=== PATIENT | male | born 1940 | race Caucasian/White ===

== ENCOUNTER 2019-09-11 18:04 | Inpatient (IN) ==
[2019-09-11] MEDS ORDERED: LACTATED RINGERS 1,000 ML IV ONE (18:13)
[2019-09-11] MEDS ORDERED: CEFEPIME 1 GM VIAL IV ONE (18:18)
--- NOTE | 2019-09-11 18:22 | Emergency Department Note ---
Male Urogenital HPI General Chief complaint: Urogenital-Male Stated complaint: Weakness, uti Time Seen by Provider: 09/11/19 18:11 Source: patient Mode of arrival: ambulatory Limitations: no limitations History of Present Illness HPI Narrative: Narrative: This patient was sent over from Dr. Leggett's office with a urinary tract infection which is growing Pseudomonas and will probably require IV antibiotics. Patient has been ill for 4 weeks and is becoming more ill today and generally just does not feel well at all. He has a lot of dysuria and pain in his pelvis and perineal area. He has had an A&P resection and does not have a rectum any longer. He does have a colostomy. Does not have back pain but only has 1 kidney. No fever chills nausea or vomiting. Related Data Home Medications Medication Instructions Recorded Confirmed terazosin 10 mg PO DAILY 05/27/15 09/11/19 warfarin 5 mg PO DAILY 05/27/15 09/11/19 cyanocobalamin (vitamin B-12) 1,000 mcg IM .[id number] ml 10/20/15 09/11/19 1,000 mcg/mL injection solution propranolol 20 mg tablet 20 mg PO BID tab 10/20/15 09/11/19 psyllium 1 tbsp PO BID 10/20/15 09/11/19 sildenafil 100 mg tablet 100 mg PO .COMPLEX 10/20/15 09/11/19 turmeric root extract 500 mg 10/20/15 09/11/19 capsule zolpidem 10 mg tablet 10 mg PO QHS PRN tab 10/20/15 09/11/19 Stool Softener #1 ea 10/05/17 09/11/19 cholecalciferol (vitamin D3) 125 5,000 unit PO BID cap 10/08/17 09/11/19 mcg (5,000 unit) capsule magnesium oxide 500 mg capsule 500 mg PO QDAY cap 10/08/17 09/11/19 testosterone 1.62 % (20.25 mg/1.25 1 mg TOPICAL DAILY 10/08/17 09/11/19 gram) transdermal gel packet warfarin 2.5 mg PO WEEKLY 10/11/17 09/11/19 phenazopyridine 200 mg PO PRN PRN 09/11/19 09/11/19 Previous Rx's Medication Instructions Recorded oxycodone-acetaminophen 1 each PO Q4HP PRN #10 tab 10/12/17 Allergies Allergy/AdvReac Type Severity Reaction Status Date / Time midazolam [From Versed] Allergy Intermediate Other Verified 09/11/19 18:04 gentamicin [Gentamicin] Allergy Unknown Other Verified 09/11/19 18:04 Iodinated Contrast Media Allergy Unknown Other Verified 09/11/19 18:04 lactase [From Dairy Aid] Allergy Unknown Flatulence Verified 09/11/19 18:04 Penicillins Allergy Unknown Unknown Verified 09/11/19 18:04 Review of Systems ROS ROS Narrative: Narrative: All systems ED: reviewed and negative except as stated. [facility] Narrative Patient History Narrative: Narrative: Medical/Surgical/Family History All Active Problems (Updated 09/11/19 @ 20:39 by Fredo Degroot MD) Deep vein thrombosis of lower extremity (Acute) Thrombophilia (Acute) Dysphagia (Acute) Concussion with loss of consciousness (Acute) Urinary tract infection (Acute) Port-A-Cath in place (Chronic) Tremor (Chronic) Chronic post-traumatic stress disorder (Chronic) Rosacea (Chronic) Dermatitis (Chronic) Carcinoma of colon (Chronic) Anorexia (Chronic) Vitamin B12 deficiency anemia (Chronic) Impotence (Chronic) Sensorineural hearing loss (SNHL), bilateral (Chronic) Elevated PSA (Chronic) Dermatochalasis (Chronic) 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) Chest pain (Chronic) Hydronephrosis (Chronic) Low back pain (Chronic) Bronchospasm (Chronic) Disequilibrium (Chronic) Tear film insufficiency (Chronic) Chronic allergic conjunctivitis (Chronic) Nuclear senile cataract (Chronic) Seborrheic keratosis (Chronic) Anxiety (Chronic) Severe depression (Chronic) detention current use of anticoagulant (Chronic) Chronic pyelonephritis (Chronic) Status post nephrectomy (Chronic) Toe injury (Chronic) Vertigo (Chronic) Chronic urinary tract infection (Chronic) History of colon cancer (Chronic) Poor venous access (Chronic) Right acetabular fracture (Chronic) Concussion (Chronic) Medical History (Updated 09/11/19 @ 20:39 by Fredo Degroot MD) Anorexia (Chronic) Anxiety (Chronic) Bronchospasm (Chronic) Carcinoma of colon (Chronic) Chest pain (Chronic) Chronic allergic conjunctivitis (Chronic) Chronic post-traumatic stress disorder (Chronic) Chronic pyelonephritis (Chronic) Chronic urinary tract infection (Chronic) Concussion (Chronic) Dermatitis (Chronic) Dermatochalasis (Chronic) Disequilibrium (Chronic) Elevated PSA (Chronic) Gastroesophageal reflux disease with stricture (Chronic) History of colon cancer (Chronic) Hydronephrosis (Chronic) 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 Multiple requests for medical marijuana. Nuclear senile cataract (Chronic) Poor venous access (Chronic) Port-A-Cath in place (Chronic) Pulmonary embolism and infarction (Chronic) Right acetabular fracture (Chronic) Rosacea (Chronic) Seborrheic keratosis (Chronic) Sensorineural hearing loss (SNHL), bilateral (Chronic) Severe depression (Chronic) Status post nephrectomy (Chronic) Tear film insufficiency (Chronic) Toe injury (Chronic) 08/2015-Dropped piece of drywall on toe Tremor (Chronic) Venous thrombosis and embolism (Chronic) Vertigo (Chronic) Vitamin B12 deficiency anemia (Chronic) Surgical History (Updated 10/25/17 @ 13:59 by Chhaya Fish CMA) History of creation of ostomy (Chronic) colostomy History of removal of Port-a-Cath (Acute) 10/12/2017 No pertinent past surgical history (Inactive) Family History Other No pertinent family history Social History Smoking Status: Never smoker Alcohol Intake Frequency: holiday/special occasion only Exam Narrative Narrative: Narrative: General Limitations: no limitations Head Head: atraumatic and normocephalic Eye Eye: Present normal appearance; Absent conjunctival injection ENT ENT: Present normal exam Chest Chest: Present normal inspection and symmetric chest wall rise Respiratory Respiratory: Present normal lung sounds bilaterally; Absent respiratory distress, rales/crackles and wheezes Cardiovascular Cardiovascular: Present regular rate, normal rhythm and normal heart sounds Adbominal Abdominal: Present soft and tenderness; Absent distention, guarding, rebound and rigidity Back Back: Absent CVA tenderness (R) and CVA tenderness (L) Neurological Neurological: Present alert Psychiatric Psychiatric: Present normal affect Skin Skin: Present warm and dry; Absent diaphoresis Course Vital Signs Vital signs: Vital Signs Temperature 98.1 F 09/11/19 18:04 Pulse Rate 68 09/11/19 18:04 Respiratory Rate 16 09/11/19 18:04 Blood Pressure 119/74 09/11/19 18:04 Pulse Oximetry (%) 93 09/11/19 18:04 Temperature 98.1 F 09/11/19 18:04 Pulse Rate 64 09/11/19 20:35 Respiratory Rate 16 09/11/19 20:35 Blood Pressure 123/73 09/11/19 20:35 Pulse Oximetry (%) 93 09/11/19 20:35 MDM MDM Narrative Medical decision making narrative: Narrative: This patient has a significant urinary tract infection with Pseudomonas only sensitive to IV antibiotics. He does not appear to be septic based on his numbers and labs. We did do cultures and started him on cefepime. He will be admitted to the hospital by Dr. Encinas. Lab Data Lab results reviewed: Yes I reviewed the patient's lab results. Result diagrams: 09/11/19 18:32 09/11/19 18:32 Labs: Lab Results 09/11/19 09/11/19 09/11/19 Range/Units 18:23 18:32 18:32 WBC 6.4 (4.50-11.00) K/mcL RBC 3.95 L (4.63-6.08) M/mcL Hgb 12.9 L (13.7-17.5) g/dL Hct 38.0 L (40.1-51.0) % MCV 96.2 (80.0-100.0) fL MCH 32.7 (26.0-34.0) pg MCHC 33.9 (31.0-36.0) g/dL RDW 13.2 (11.5-14.5) % Plt Count 189 (140-440) K/mcL MPV 10.7 H (7.4-10.4) fL Gran % 50.1 (38.0-78.0) % Lymph % (Auto) 37.6 (15.5-49.0) % [place] % (Auto) 6.2 (1.0-12.0) % Eos % (Auto) 5.8 (0.0-7.0) % Baso % (Auto) 0.3 (0.0-2.0) % Gran # 3.22 (1.80-8.00) K/mcL Lymph # (Auto) 2.42 (1.50-4.80) K/mcL [place] # (Auto) 0.40 (0.10-0.90) K/mcL Eos # (Auto) 0.37 (0.00-0.70) K/mcL Baso # (Auto) 0.02 (0.00-0.30) K/mcL PT (11.9-14.5) sec INR (0.9-1.1) VBG Lactic Acid 0.8 (0.5-2.0) mmol/L Sodium 141 (133-145) mmol/L Potassium 3.8 (3.3-5.1) mmol/L Chloride 102 (96-108) mmol/L Carbon Dioxide 24 (22-30) mmol/L Anion Gap 15.0 (8-16) BUN 31 H (8-23) mg/dl Creatinine 1.6 H (0.7-1.2) mg/dl GFR Calculation 41 Glucose 119 H (70-105) mg/dL Calcium 9.6 (8.6-10.4) mg/dl Total Bilirubin 0.4 (0.0-1.0) mg/dL AST 32 (0-37) U/l ALT 24 (0-40) U/l Alkaline Phosphatase 48 (39-117) U/L Total Protein 6.7 (5.9-8.4) gm/dL Albumin 4.0 (3.2-5.2) gm/dL Globulin 2.7 (2.2-3.7) gm/dL Albumin/Globulin Ratio 1.5 (1.0-2.3) Urine Color Urine Appearance Urine pH (5.0-9.0) Ur Specific [place] (1.000-1.035) Urine Protein (NEG) mg/dL Urine Glucose (UA) (NEG) mg/dL Urine Ketones (NEG) mg/dL Urine Occult Blood (<0.03) mg/dL Urine Nitrate (NEG) Urine Bilirubin (NEG) mg/dL Urine Urobilinogen (NEG) mg/dL Ur Leukocyte Esterase (NEG) /uL Urine RBC (0-1) /hpf Urine WBC (0-4) /hpf Ur Squamous Epith Cells (0-4) /hpf Urine Bacteria (0) /hpf Urine Mucus (0) /hpf Ur Culture Indicated? 09/11/19 09/11/19 Range/Units 18:32 19:15 WBC (4.50-11.00) K/mcL RBC (4.63-6.08) M/mcL Hgb (13.7-17.5) g/dL Hct (40.1-51.0) % MCV (80.0-100.0) fL MCH (26.0-34.0) pg MCHC (31.0-36.0) g/dL RDW (11.5-14.5) % Plt Count (140-440) K/mcL MPV (7.4-10.4) fL Gran % (38.0-78.0) % Lymph % (Auto) (15.5-49.0) % [place] % (Auto) (1.0-12.0) % Eos % (Auto) (0.0-7.0) % Baso % (Auto) (0.0-2.0) % Gran # (1.80-8.00) K/mcL Lymph # (Auto) (1.50-4.80) K/mcL [place] # (Auto) (0.10-0.90) K/mcL Eos # (Auto) (0.00-0.70) K/mcL Baso # (Auto) (0.00-0.30) K/mcL PT 25.5 H (11.9-14.5) sec INR 2.3 H (0.9-1.1) VBG Lactic Acid (0.5-2.0) mmol/L Sodium (133-145) mmol/L Potassium (3.3-5.1) mmol/L Chloride (96-108) mmol/L Carbon Dioxide (22-30) mmol/L Anion Gap (8-16) BUN (8-23) mg/dl Creatinine (0.7-1.2) mg/dl GFR Calculation Glucose (70-105) mg/dL Calcium (8.6-10.4) mg/dl Total Bilirubin (0.0-1.0) mg/dL AST (0-37) U/l ALT (0-40) U/l Alkaline Phosphatase (39-117) U/L Total Protein (5.9-8.4) gm/dL Albumin (3.2-5.2) gm/dL Globulin (2.2-3.7) gm/dL Albumin/Globulin Ratio (1.0-2.3) Urine Color Shivani Urine Appearance Clear Urine pH 6.0 (5.0-9.0) Ur Specific [place] 1.018 (1.000-1.035) Urine Protein Neg (NEG) mg/dL Urine Glucose (UA) Negative (NEG) mg/dL Urine Ketones Neg (NEG) mg/dL Urine Occult Blood Neg (<0.03) mg/dL Urine Nitrate Pos A (NEG) Urine Bilirubin Neg (NEG) mg/dL Urine Urobilinogen 4.0 A (NEG) mg/dL Ur Leukocyte Esterase 250 A (NEG) /uL Urine RBC 5 H (0-1) /hpf Urine WBC 60 H (0-4) /hpf Ur Squamous Epith Cells 0 (0-4) /hpf Urine Bacteria 0 (0) /hpf Urine Mucus Few (0) /hpf Ur Culture Indicated? Yes Discharge Plan Patient/Caregiver Discharge Instructions Pt seen by [facility] [employer] [facility]/PA only: No Clinical Impression: Urinary tract infection Patient Disposition: Xfer As Inpt ([facility]) Follow up with: Jose Leggett MD [Primary Care Provider] - Prescriptions: No Action sildenafil 100 mg tablet 100 mg PO .COMPLEX RF: 0 psyllium powder 1 tbsp PO BID RF: 0 cyanocobalamin (vitamin B-12) 1,000 mcg/mL solution 1,000 mcg IM .[id number] RF: 0 propranolol 20 mg tablet 20 mg PO BID RF: 0 zolpidem 10 mg tablet 10 mg PO QHS PRN (Reason: Sleep) RF: 0 (DME) turmeric root extract 500 mg capsule 500 mg .ROUTE .MEDSUPPLY RF: 0 cholecalciferol (vitamin D3) 5,000 unit capsule 5,000 unit PO BID RF: 0 (DME) Stool Softener Qty: 1 RF: 0 magnesium oxide 500 mg capsule 500 mg PO QDAY RF: 0 testosterone [AndroGel] 1.62 % (20.25 mg/1.25 gram) gel in packet 1 mg TOPICAL DAILY RF: 0 terazosin 1 MG capsule 10 mg PO DAILY RF: 0 warfarin 5 MG tablet 5 mg PO DAILY RF: 0 warfarin 2.5 MG tablet 2.5 mg PO WEEKLY RF: 0 oxycodone-acetaminophen 1 EACH tablet 1 each PO Q4HP PRN (Reason: Pain Level > 6) Qty: 10 RF: 0 phenazopyridine 200 mg tablet 200 mg PO PRN PRN (Reason: urinary) RF: 0
[2019-09-11 19:14] LABS: Basophils # (Auto) 0.02 K/mcL (0.00-0.30); Basophils % (Auto) 0.3 % (0.0-2.0); Eosinophils # (Auto) 0.37 K/mcL (0.00-0.70); Eosinophils % (Auto) 5.8 % (0.0-7.0); Granulocytes % (Auto) 50.1 % (38.0-78.0); Hemoglobin 12.9 g/dL (13.7-17.5); Lymphocytes # (Auto) 2.42 K/mcL (1.50-4.80); Lymphocytes % (Auto) 37.6 % (15.5-49.0); Mean Cell Volume 96.2 fL (80.0-100.0); Mean Corpuscular HGB Conc 33.9 g/dL (31.0-36.0); Mean Platelet Volume 10.7 fL (7.4-10.4); Monocytes % (Auto) 6.2 % (1.0-12.0); Platelet Count 189 K/mcL (140-440); RBC 3.95 M/mcL (4.63-6.08); Red Cell Distribution Width 13.2 % (11.5-14.5); WBC 6.4 K/mcL (4.50-11.00)
[2019-09-11 19:29] LABS: INR 2.3 (0.9-1.1); Prothrombin Time 25.5 sec (11.9-14.5)
[2019-09-11 19:34] LABS: ALT/SGPT 24 U/l (0-40); AST/SGOT 32 U/l (0-37); Albumin/Globulin Ratio 1.5 (1.0-2.3); Alkaline Phosphatase 48 U/L (39-117); Bilirubin,Total 0.4 mg/dL (0.0-1.0); Blood Urea Nitrogen 31 mg/dl (8-23); Calcium 9.6 mg/dl (8.6-10.4); Carbon Dioxide 24 mmol/L (22-30); Chloride 102 mmol/L (96-108); Globulin 2.7 gm/dL (2.2-3.7); Glomerular Filtration Rate 41; Glucose 119 mg/dL (70-105)
[2019-09-11 20:15] LABS: Appearance,Urine CLEAR; Bacteria,Urine 0 /hpf (0); Bilirubin,Urine NEG (NEG); Color,Urine AMBER; Culture Indicated,Urine YES; Glucose,Urine (UA) NEGATIVE (NEG); Ketones,Urine NEG (NEG); Leukocyte Esterase,Urine 250 /uL (NEG); Mucus,Urine FEW /hpf (0); Nitrate,Urine POS (NEG); Protein,Urine NEG (NEG); Specific Gravity,Urine 1.018 (1.000-1.035); Urine Blood NEG mg/dL (<0.03); Urine RBC 5 /hpf (0-1); Urine Squamous Epithelial Cell 0 /hpf (0-4); Urine WBC 60 /hpf (0-4)
--- NOTE | 2019-09-11 20:50 | Internal Med History&Physical ---
HPI History of Present Illness Patient information: Note initiated : 09/11/19 at 8:49 pm Service Date, if different from initiated Date: [] Patient: Nelson Arizmendi a 79 y/o M admitted on for Weakness, uti. Chief Complaint: [] History of present illness: Mr. Arizmendi is a 79 year old M with a complex of DVT on anticoagulation/cancer status post colostomy/left nephrectomy and recurrent Pseudomonas UTI who presents to the ER with increasing weakness fatigue flank right groin pain and dysuria over the last few weeks . Patient failed outpatient trial of oral antibiotics. Work-up in the ER was essentially unremarkable without any signs of sepsis except for creatinine 1.6 and pyuria. Patient was started on cefepime based on sensitivities. 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 Urine culture sensitivities pending. Hospital service was consulted for admission He appears quite disgruntled with medical care he received in the past including gentamicin related vestibular toxicity 3 years ago. Over the years he has had over 6 episodes of GI the last episode in April 03 he was treated at [place] on cefepime. He endorses associated low-grade fever but denies nausea, vomiting, increasing ostomy output Review of system 10 point review of system was performed and is negative except for ones discussed above [facility] Medical History (Updated 09/11/19 @ 20:39 by Fredo Degroot MD) Anorexia (Chronic) Anxiety (Chronic) Bronchospasm (Chronic) Carcinoma of colon (Chronic) Chest pain (Chronic) Chronic allergic conjunctivitis (Chronic) Chronic post-traumatic stress disorder (Chronic) Chronic pyelonephritis (Chronic) Chronic urinary tract infection (Chronic) Concussion (Chronic) Dermatitis (Chronic) Dermatochalasis (Chronic) Disequilibrium (Chronic) Elevated PSA (Chronic) Gastroesophageal reflux disease with stricture (Chronic) History of colon cancer (Chronic) Hydronephrosis (Chronic) 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 Multiple requests for medical marijuana. Nuclear senile cataract (Chronic) Poor venous access (Chronic) Port-A-Cath in place (Chronic) Pulmonary embolism and infarction (Chronic) Right acetabular fracture (Chronic) Rosacea (Chronic) Seborrheic keratosis (Chronic) Sensorineural hearing loss (SNHL), bilateral (Chronic) Severe depression (Chronic) Status post nephrectomy (Chronic) Tear film insufficiency (Chronic) Toe injury (Chronic) 08/2015-Dropped piece of drywall on toe Tremor (Chronic) Venous thrombosis and embolism (Chronic) Vertigo (Chronic) Vitamin B12 deficiency anemia (Chronic) Surgical History (Updated 10/25/17 @ 13:59 by Chhaya Fish CMA) History of creation of ostomy (Chronic) colostomy History of removal of Port-a-Cath (Acute) 10/12/2017 No pertinent past surgical history (Inactive) Family History Other No pertinent family history Social History (Updated 10/29/17 @ 15:09 by Dipak Velasco MD) service: Yes smoking status: Never smoker alcohol intake frequency: holiday/special occasion only MEDS/ALLERGIES Home Medications and Allergies Home Medications Medication Instructions Recorded Confirmed Type terazosin 10 mg PO DAILY 05/27/15 09/11/19 History warfarin 5 mg PO SUTUTHSA@1400 05/27/15 09/12/19 History cyanocobalamin (vitamin B-12) 1,000 mcg IM .[id number] ml 10/20/15 09/11/19 History 1,000 mcg/mL injection solution propranolol 20 mg tablet 20 mg PO BID tab 10/20/15 09/11/19 History psyllium 1 tbsp PO BID 10/20/15 09/11/19 History sildenafil 100 mg tablet 100 mg PO .COMPLEX 10/20/15 09/11/19 History turmeric root extract 500 mg 10/20/15 09/11/19 History capsule zolpidem 10 mg tablet 10 mg PO QHS PRN tab 10/20/15 09/11/19 History Stool Softener #1 ea 10/05/17 09/11/19 History cholecalciferol (vitamin D3) 125 5,000 unit PO BID cap 10/08/17 09/11/19 History mcg (5,000 unit) capsule magnesium oxide 500 mg capsule 500 mg PO BID cap 10/08/17 09/11/19 History testosterone 1.62 % (20.25 mg/1.25 1 mg TOPICAL DAILY 10/08/17 09/11/19 History gram) transdermal gel packet oxycodone-acetaminophen 1 each PO Q4HP PRN #10 tab 10/12/17 09/11/19 Rx dextroamphetamine-amphetamine 10 mg PO DAILY 09/11/19 09/11/19 History lorazepam 2 mg PO BIDP PRN 09/11/19 09/11/19 History phenazopyridine 200 mg PO PRN PRN 09/11/19 09/11/19 History warfarin 7 mg PO MOWEFR@1400 09/12/19 09/12/19 History Allergies Allergy/AdvReac Type Severity Reaction Status Date / Time gentamicin [Gentamicin] Allergy Severe Other Verified 09/11/19 22:02 Iodinated Contrast Media Allergy Severe Other Verified 09/11/19 22:01 lactase [From Dairy Aid] Allergy Intermediate Flatulence Verified 09/11/19 22:01 midazolam [From Versed] Allergy Intermediate Other Verified 09/11/19 22:01 Penicillins Allergy Intermediate Swelling Verified 09/11/19 22:01 EXAM Constitutional Vitals: Temp Pulse Resp BP Pulse Ox 98.1 F 64 16 123/73 93 09/11/19 18:04 09/11/19 20:35 09/11/19 20:35 09/11/19 20:35 09/11/19 20:35 Anxious Head normocephalic Oral cavity moist No ear nose discharge Eye movement symmetrical Neck supple no lymphadenopathy Nonlabored breathing Nondistended nontender abdomen, colostomy bag in place Lower extremity no cyanosis clubbing or joint swelling Skin no suspicious lesion Psych anxious but alert cooperative Neuro normal higher function DATA Data Completed and Pending Labs on day of discharge: Labs from last 24 hours 09/11/19 09/11/19 09/11/19 19:15 18:32 18:32 WBC RBC Hgb Hct MCV MCH MCHC RDW Plt Count MPV Gran % Lymph % (Auto) [place] % (Auto) Eos % (Auto) Baso % (Auto) Gran # Lymph # (Auto) [place] # (Auto) Eos # (Auto) Baso # (Auto) PT 25.5 H INR 2.3 H VBG Lactic Acid Sodium 141 Potassium 3.8 Chloride 102 Carbon Dioxide 24 Anion Gap 15.0 BUN 31 H Creatinine 1.6 H GFR Calculation 41 Glucose 119 H Calcium 9.6 Total Bilirubin 0.4 AST 32 ALT 24 Alkaline Phosphatase 48 Total Protein 6.7 Albumin 4.0 Globulin 2.7 Albumin/Globulin Ratio 1.5 Urine Color Shivani Urine Appearance Clear Urine pH 6.0 Ur Specific [place] 1.018 Urine Protein Neg Urine Glucose (UA) Negative Urine Ketones Neg Urine Occult Blood Neg Urine Nitrate Pos A Urine Bilirubin Neg Urine Urobilinogen 4.0 A Ur Leukocyte Esterase 250 A Urine RBC 5 H Urine WBC 60 H Ur Squamous Epith Cells 0 Urine Bacteria 0 Urine Mucus Few Ur Culture Indicated? Yes 09/11/19 09/11/19 18:32 18:23 WBC 6.4 RBC 3.95 L Hgb 12.9 L Hct 38.0 L MCV 96.2 MCH 32.7 MCHC 33.9 RDW 13.2 Plt Count 189 MPV 10.7 H Gran % 50.1 Lymph % (Auto) 37.6 [place] % (Auto) 6.2 Eos % (Auto) 5.8 Baso % (Auto) 0.3 Gran # 3.22 Lymph # (Auto) 2.42 [place] # (Auto) 0.40 Eos # (Auto) 0.37 Baso # (Auto) 0.02 PT INR VBG Lactic Acid 0.8 Sodium Potassium Chloride Carbon Dioxide Anion Gap BUN Creatinine GFR Calculation Glucose Calcium Total Bilirubin AST ALT Alkaline Phosphatase Total Protein Albumin Globulin Albumin/Globulin Ratio Urine Color Urine Appearance Urine pH Ur Specific [place] Urine Protein Urine Glucose (UA) Urine Ketones Urine Occult Blood Urine Nitrate Urine Bilirubin Urine Urobilinogen Ur Leukocyte Esterase Urine RBC Urine WBC Ur Squamous Epith Cells Urine Bacteria Urine Mucus Ur Culture Indicated? A/P Narrative A/P Narrative: * Complicated recurrent UTI, Pseudomonas on culture. Repeat UA pending. * History of CKD, unilateral kidney, avoid nephrotoxins * History of DVT on anticoagulation on Coumadin * BPH on tamsulosin * History of rectal cancer status post colostomy. * Chronic pain on oxycodone * Full code PLAN * Inpt admit( failed OP treatment) * IV cefepime * Renal imaging * Colostomy care * Anticoagulation on Coumadin * PT OT nutrition support * ID and urology consult Time Spent With Patient Time: Total time spent is greater than 50% in coordination of care (as documented) at patient's floor/unit and/or counseling patient:
[2019-09-11] MEDS ORDERED: MELATONIN 3 MG TABLET PO PRN (21:48)
[2019-09-11] MEDS ORDERED: BISACODYL 10 MG SUPP.RECT PR PRN (21:48)
[2019-09-11] MEDS ORDERED: SILDENAFIL 100 MG PO SCH (21:48)
[2019-09-11] MEDS ORDERED: STOOL SOFTENER PO SCH (21:48)
[2019-09-11] MEDS ORDERED: ONDANSETRON 4 MG/2 ML VIAL IV PRN (21:48)
[2019-09-11] MEDS ORDERED: METOPROLOL TARTRATE 5 MG/5 ML VIAL IV PRN (21:48)
[2019-09-11] MEDS ORDERED: POTASSIUM CHLORIDE 20 MEQ PACKET PO PRN (21:48)
[2019-09-11] MEDS ORDERED: oxyCODONE/APAP 10/325MG TABLET PO PRN (21:48)
[2019-09-11] MEDS ORDERED: TURMERIC ROOT EXTRACT SCH (21:48)
[2019-09-11] MEDS ORDERED: ONDANSETRON 4 MG ODT TABLET SL PRN (21:48)
[2019-09-11] MEDS ORDERED: ACETAMINOPHEN 650 MG/65 ML BOTTLE IV PRN (21:48)
[2019-09-11] MEDS ORDERED: WARFARIN 2.5 MG TABLET PO SCH (21:48)
[2019-09-11] MEDS ORDERED: POLYETHYLENE GLYCOL 3350 17 GM PACKET PO PRN (21:48)
[2019-09-11] MEDS ORDERED: POTASSIUM CHLORIDE 40 MEQ in DEXTROSE 5% IN WATER 500 ML IV PRN (21:48)
[2019-09-11] MEDS ORDERED: PHENAZOPYRIDINE 200 MG TABLET PO PRN (21:48)
[2019-09-11] MEDS ORDERED: MAGNESIUM SULFATE 2 GM/50 ML BAG IV PRN (21:48)
[2019-09-11] MEDS ORDERED: CYANOCOBALAMIN 1,000 MCG/ML VIAL IM SCH (21:48)
[2019-09-11] MEDS ORDERED: WARFARIN 5 MG TABLET PO ONE (22:15)
[2019-09-11] MEDS: 0.9 % SODIUM CHLORIDE 1,000 ML IV SCH (22:18)
[2019-09-11] MEDS: ZOLPIDEM 5 MG TABLET PO PRN (23:14)
[2019-09-11] MEDS: VITAMIN D3 5,000 UNIT CAPSULE PO SCH (23:15)
[2019-09-11] MEDS: SENNOSIDES/DOCUSATE SODIUM 1 TAB TABLET PO SCH (23:15)
[2019-09-11] MEDS: PROPRANOLOL 40 MG TABLET PO SCH (23:15)
[2019-09-11] MEDS: DOCUSATE SODIUM 100 MG CAPSULE PO SCH (23:16)
[2019-09-11] MEDS: 0.9 % SODIUM CHLORIDE 10 ML SYRINGE IV SCH (23:16)
[2019-09-11] MEDS ORDERED: CEFEPIME 1 GM VIAL IV SCH (23:30)
[2019-09-12] MEDS ORDERED: CEFEPIME 1 GM VIAL ONE (03:24)
[2019-09-12] MEDS: 0.9 % SODIUM CHLORIDE 10 ML SYRINGE IV SCH ×3 (05:27→23:05)
[2019-09-12 06:54] LABS: Hematocrit 38.5 % (40.1-51.0); Hemoglobin 12.7 g/dL (13.7-17.5); Mean Platelet Volume 10.5 fL (7.4-10.4); Platelet Count 198 K/mcL (140-440); RBC 3.93 M/mcL (4.63-6.08); Red Cell Distribution Width 13.2 % (11.5-14.5); WBC 5.7 K/mcL (4.50-11.00)
[2019-09-12] MEDS ORDERED: CEFEPIME 1 GM VIAL IV SCH (07:00)
[2019-09-12 07:29] LABS: ALT/SGPT 22 U/l (0-40); AST/SGOT 30 U/l (0-37); Albumin 3.9 gm/dL (3.2-5.2); Albumin/Globulin Ratio 1.6 (1.0-2.3); Alkaline Phosphatase 46 U/L (39-117); Bilirubin,Direct < 0.2 mg/dL (0.0-0.3); Bilirubin,Total 0.6 mg/dL (0.0-1.0); Blood Urea Nitrogen 27 mg/dl (8-23); Calcium 8.9 mg/dl (8.6-10.4); Carbon Dioxide 24 mmol/L (22-30); Chloride 104 mmol/L (96-108); Globulin 2.5 gm/dL (2.2-3.7); Glomerular Filtration Rate 48; Glucose 87 mg/dL (70-105); Lactate Dehydrogenase 237 U/L (94-250); Phosphorous 3.1 mg/dL (2.7-4.5); Triglycerides 157 mg/dl (<150); Uric Acid 5.8 mg/dL (2.5-8.0)
[2019-09-12 08:13] LABS: INR 2.3 (0.9-1.1); Prothrombin Time 25.6 sec (11.9-14.5)
[2019-09-12 08:22] LABS: Band Neutrophils % 1 % (0-10); Eosinophils % (Manual) 5 % (0-7); Lymphocytes % 38 % (15-49); Monocytes % (Manual) 11 % (1-12); Platelet Estimate NORMAL (NORMAL); RBC Morphology NORMAL (NORMAL); Segmented Neutrophils % 45 % (38-78)
--- NOTE | 2019-09-12 08:54 | Ultrasound Report ---
CLINICAL INFORMATION: UTI. History of left nephrectomy for renal cell carcinoma.. COMPARISON: None. FINDINGS: Left kidney is surgically absent. There is compensatory hypertrophy of the right kidney: 14.6 x 5 cm. There are 4-5 cysts five cyst in the right kidney ranging up to 11 mm. No stones or solid lesions or evidence of hydronephrosis. Renal echotexture is mildly echogenic. Urinary bladder volume is 133 cc with a 70 cc post void residual. Prostate volume the upper limits of normal: 27 cc IMPRESSION: 1. Left nephrectomy with compensatory hypertrophy of the right kidney. Mild elevation right renal echotexture suggesting medical renal disease. 2. No hydronephrosis suggest obstruction right uropathy. 3. Prostate upper limits of normal in size. Moderate post void residual Interpreted and Authenticated by: Matt Marte 09/12/19
[2019-09-12] MEDS ORDERED: LORazepam 1 MG TABLET PO PRN (08:58)
[2019-09-12] MEDS: PROPRANOLOL 40 MG TABLET PO SCH ×2 (08:59→20:56)
[2019-09-12] MEDS: MULTIVIT,THER IRON,CA,FA & MIN 1 TABLET PO SCH (08:59)
[2019-09-12] MEDS: DOCUSATE SODIUM 100 MG CAPSULE PO SCH (08:59)
[2019-09-12] MEDS: VITAMIN D3 5,000 UNIT CAPSULE PO SCH ×2 (08:59→20:57)
[2019-09-12] MEDS ORDERED: WARFARIN 5 MG TABLET PO SCH (09:00)
[2019-09-12] MEDS ORDERED: MAGNESIUM OXIDE 400 MG TABLET PO SCH ×2 (09:00→21:00)
[2019-09-12] MEDS ORDERED: PSYLLIUM HUSK 6 GM PACKET PO SCH (09:00)
[2019-09-12] MEDS ORDERED: DEXTROAMPHETAMINE AMPHETAMINE 10 MG PO SCH ×2 (09:00→10:00)
[2019-09-12] MEDS ORDERED: TESTOSTERONE 1.62% TOPICAL SCH ×2 (09:00→10:00)
[2019-09-12] MEDS: TERAZOSIN 1 MG CAPSULE PO SCH (10:19)
--- NOTE | 2019-09-12 10:56 | Internal Med Progress Note ---
SUBJECTIVE Subjective Patient information: Note initiated : 09/12/19 at 10:53 am Service Date, if different from initiated Date: [] Patient: Nelson Arizmendi a 79 y/o M admitted on 09/11/19 for Weakness, uti. Chief Complaint: [] Mr. 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 Patient failed outpatient trial of antibiotics. Work-up in the ER was essentially unremarkable without any signs of sepsis except for creatinine 1.6. Patient was started on cefepime current Pseudomonas infection over the last 3 years requiring IV antibiotics. Urine culture sensitivities pending. Hospital service was consulted for admission He appears quite disgruntled with medical care he received in the past including vestibular toxicity during gentamicin 3 years ago. Over the years he has had over 6 episodes of GI the last episode in April 03 he was treated at [facility] on cefepime. He endorses associated low-grade fever but denies nausea, vomiting, increasing ostomy output 09/11-patient doing well. White count 5.7. INR 2.3, creatinine 1.4. On cefepime 1 g 3 times a day pyuria noted. Urine culture results in primary office pending. Await ID recommendations. Reviewed imaging from prior hospit alization at outside facility. No fever chills. Persistent abdominal discomfort. Constitutional Vitals: Vital Signs Temp Pulse Resp BP Pulse Ox 97.8 F 62 18 125/74 93 09/12/19 07:28 09/12/19 07:28 09/12/19 07:28 09/12/19 07:28 09/12/19 07:28 Period Temp Pulse Resp BP Sys/Malhotra Pulse Ox Last 24 Hr 97.8 F-98.6 F 48-72 12-20 110-137/71-95 93-96 Intake and Output 09/11/19 09/12/19 09/12/19 21:59 05:59 13:59 Intake Total 1000 200 Output Total 200 525 Balance 800 -325 Weight 81.148 kg 81.148 kg alert but anxious Nonlabored breathing No anxiety Colostomy Intake & Output: Intake & Output 09/11/19 09/12/19 09/12/19 21:59 05:59 13:59 Intake Total 1000 200 Output Total 200 525 Balance 800 -325 Weight 81.148 kg 81.148 kg Intake: IV 1000 Lactated Ringers 1,000 ml @ 1000 Wide Open IV BOLUS ONE Rx#: [id number] Oral 200 Output: Void Amount 200 525 Other: Urine Appearance Clear Urine Color [place] OBJ DATA Labs CBC & Chem 7: 09/12/19 05:22 09/12/19 05:22 Labs: Abnormal Lab Results 09/12/19 09/12/19 09/12/19 07:19 05:22 05:22 RBC 3.93 L Hgb 12.7 L Hct 38.5 L MPV 10.5 H PT 25.6 H INR 2.3 H BUN 27 H Creatinine 1.4 H Glucose Triglycerides 157 H Urine Nitrate Urine Urobilinogen Ur Leukocyte Esterase Urine RBC Urine WBC 09/11/19 09/11/19 09/11/19 19:15 18:32 18:32 RBC Hgb Hct MPV PT 25.5 H INR 2.3 H BUN 31 H Creatinine 1.6 H Glucose 119 H Triglycerides Urine Nitrate Pos A Urine Urobilinogen 4.0 A Ur Leukocyte Esterase 250 A Urine RBC 5 H Urine WBC 60 H 09/11/19 18:32 RBC 3.95 L Hgb 12.9 L Hct 38.0 L MPV 10.7 H PT INR BUN Creatinine Glucose Triglycerides Urine Nitrate Urine Urobilinogen Ur Leukocyte Esterase Urine RBC Urine WBC Meds: Medications Acetaminophen (Tylenol) 650 mg PO Q4-6HP PRN; Protocol PRN Reason: Per Pain Protocol/Fever > 101 Bisacodyl (Dulcolax) [address] Q2-3DAYS PRN PRN Reason: Constipation Cefepime HCl (Maxipime) 1 gm IV Q8H [facility] Last Admin: 09/12/19 00:31 Dose: Not Given Documented by: Docusate Sodium (Colace) 250 mg PO BID [facility] Finasteride (Proscar) 5 mg PO DAILY [facility] Sodium Chloride (Sodium Chloride 0.9%) 1,000 mls @ 50 mls/hr IV .Q20H [facility] Stop: 09/14/19 09:47 Last Admin: 09/11/19 22:18 Dose: 50 mls/hr Documented by: Acetaminophen (Ofirmev) 650 mg in 65 mls @ 130 mls/hr IV Q6HP PRN; Protocol PRN Reason: Per Pain Protocol/Fever > 101 Potassium Chloride 40 meq/ (Dextrose) 520 mls @ 130 mls/hr IV UD PRN PRN Reason: K+ = or < 3.5 Magnesium Sulfate (Magnesium Sulfate) 2 gm in 50 mls @ 50 mls/hr IV UD PRN PRN Reason: MG = or < 1.7 Iron Carb/Multivit/Slug Press Operator/Folic Acid (Multivitamin W/Minerals) 1 tab PO DAILY [facility] Last Admin: 09/12/19 08:59 Dose: 1 tab Documented by: Lorazepam (Ativan) 2 mg PO BIDP PRN PRN Reason: Anxiety Magnesium Oxide (Magnesium Oxide) 400 mg PO BID@0600,2100 [facility] Melatonin (Melatonin 3mg Tablet) 3 mg PO HSP PRN PRN Reason: Insomnia Metoprolol Tartrate (Lopressor) 5 mg IV Q5M PRN PRN Reason: Heart Rate > 140 bpm Ondansetron HCl (Zofran Odt) 4 mg SL Q4-6HP PRN; Protocol PRN Reason: Nausea And Vomiting Ondansetron HCl (Zofran) 4 mg IV Q4-6HP PRN; Protocol PRN Reason: Nausea And Vomiting Oxycodone/Acetaminophen (Percocet 10-325mg) 1 tab PO Q4HP PRN; Protocol PRN Reason: Pain Level > 6 Testosterone [ Androgel] 1.62% Transdermal Gel Packet 1 dose TOPICAL DAILY@0600 [facility] Last Admin: 09/12/19 10:20 Dose: Not Given Documented by: Dextroamphetamine- Amphetamine 10 Mg Tablet 1 dose PO DAILY@0600 [facility] Dextroamphetamine- Amphetamine 10 Mg Tablet 1 dose PO DAILY@1200 [facility] Patient Own Medication () 0 dose TOPICAL BID [facility] Phenazopyridine HCl (Pyridium) 200 mg PO TIDP PRN PRN Reason: PAINFUL URINATION Polyethylene Glycol (Miralax) 17 gm PO DAILYP PRN PRN Reason: Constipation Potassium Chloride (Klor-Con) 40 meq PO DAILYP PRN PRN Reason: K+ < 3.5 Propranolol HCl (Inderal) 20 mg PO BID@0600,2100 [facility] Psyllium Hydrophilic Mucilloid (Metamucil) 6 gm PO BID@0600,2100 [facility] Senna/Docusate Sodium (Senna Plus Tablet) 1 tab PO HS [facility] Last Admin: 09/11/19 23:15 Dose: 1 tab Documented by: Sodium Chloride (Saline Flush) 10 ml IV Q8 [facility] Last Admin: 09/12/19 05:27 Dose: Not Given Documented by: Terazosin HCl (Hytrin) 10 mg PO DAILY@0600 [facility] Last Admin: 09/12/19 10:19 Dose: Not Given Documented by: Vitamin D (Vitamin D3) 5,000 unit PO BID@0600,2100 [facility] Warfarin Sodium (Coumadin Per Pharmacy) 1 order PO UD [facility] Warfarin Sodium (Coumadin) 7 mg PO ONCE@1400 ONE Stop: 09/12/19 14:01 Zolpidem Tartrate (Ambien) 10 mg PO HSP PRN PRN Reason: Insomnia Last Admin: 09/11/19 23:14 Dose: 10 mg Documented by: A/P Narrative A/P Narrative: * Complicated recurrent UTI, Pseudomonas on culture. Repeat UA pending. Abdom inal CT * History of CKD, unilateral kidney, avoid nephrotoxins. Creatinine down from 1.6-1.4 * History of DVT on anticoagulation on Coumadin. INR therapeutic * BPH on tamsulosin * History of rectal cancer status post colostomy. Continue colostomy care * Chronic pain on oxycodone * Prophylaxis currently on Coumadin PLAN * IV cefepime * ID consult * Abdominal CT * Coumadin dosing based on INR * PT OT nutrition support Time Spent With Patient Time: Total time spent is greater than 50% in coordination of care (as documented) at patient's floor/unit and/or counseling patient: Total time spent with greater than 50% in coordination of care (as documented) at patient's floor/unit and/or counseling patient:: Greater than 35 minutes QUALITY Stroke Symptom Onset Unknown: No VTE Deep Vein Thrombosis/Pulmonary Embolism Present on Admission: No
--- NOTE | 2019-09-12 11:31 | Infectious Disease Consult ---
HPI Data of Consult Primary Care Provider: Jose Leggett Consult Narrative Patient Information: Note initiated : 09/12/19 at 11:28 am Service Date, if different from initiated Date: [] Patient: Nelson Arizmendi 79 y/o M admitted on 09/11/19 for Weakness, uti. Chief Complaint: [Pt admitted with c/o burning while urination, pain in the crotch area and fatigue for last 3 weeks. Having similar symptoms in past and being diagnosed with UTI; pt though he had a UTI again. He had a urine Cx drawn per PCP on 09/03 growing P aeruginosa (sens to cefepime). Pt endorsed fevers, but denied any flank pain, n/v, diarrhea. Meentions that he was diagnosed with stage 4 rectal cancer in 2004, and had to undergo rectum removal surgery with left sided colostomy and radiation. Subsequently due to complications of radiation and surgery he developed strictures around left urter needing multiple stents, but over course of time due to unsalvageable hydronephrosis; pt had to undergo left sided nepherectomy in 2016. Pt reports having recurret UTI fpr last couple of years. He has not been on prophylactic antibiotics before. mentions each time it is same bacteria: Pseudomonas aeruginosa. Since admission, pt has been on IV Cefepime 1 gm q8 hrs. Blood Cx were also sent. A renal US didnot show any pyelonepheritis or hydronephrosis.] cc:: CC: Marlon Talbot Review of Systems All systems: reviewed and no additional remarkable complaints except as stated [facility] Medical History Anorexia (Chronic) Anxiety (Chronic) Bronchospasm (Chronic) Carcinoma of colon (Chronic) Chest pain (Chronic) Chronic allergic conjunctivitis (Chronic) Chronic post-traumatic stress disorder (Chronic) Chronic pyelonephritis (Chronic) Chronic urinary tract infection (Chronic) Concussion (Chronic) Dermatitis (Chronic) Dermatochalasis (Chronic) Disequilibrium (Chronic) Elevated PSA (Chronic) Gastroesophageal reflux disease with stricture (Chronic) History of colon cancer (Chronic) Hydronephrosis (Chronic) Impotence (Chronic) [facility] current use of anticoagulant (Chronic) Low back pain (Chronic) Breach of pain contract. Multiple requests for medical marijuana. Nuclear senile cataract (Chronic) Poor venous access (Chronic) Port-A-Cath in place (Chronic) Pulmonary embolism and infarction (Chronic) Right acetabular fracture (Chronic) Rosacea (Chronic) Seborrheic keratosis (Chronic) Sensorineural hearing loss (SNHL), bilateral (Chronic) Severe depression (Chronic) Status post nephrectomy (Chronic) Tear film insufficiency (Chronic) Toe injury (Chronic) 08/2015-Dropped piece of drywall on toe Tremor (Chronic) Venous thrombosis and embolism (Chronic) Vertigo (Chronic) Vitamin B12 deficiency anemia (Chronic) Surgical History History of creation of ostomy (Chronic) colostomy History of removal of Port-a-Cath (Acute) 10/12/2017 No pertinent past surgical history (Inactive) Family History Other No pertinent family history Social History service: Yes smoking status: Never smoker alcohol intake frequency: holiday/special occasion only MEDS/ALLERGIES Home Medications and Allergies Home Medications Medication Instructions Recorded Confirmed Type warfarin 5 mg PO SUTUTHSA@1400 05/27/15 09/12/19 History cyanocobalamin (vitamin B-12) 1,000 mcg IM .[id number] ml 10/20/15 09/11/19 History 1,000 mcg/mL injection solution propranolol 20 mg tablet 20 mg PO BID tab 10/20/15 09/11/19 History psyllium 1 tbsp PO BID 10/20/15 09/11/19 History sildenafil 100 mg tablet 100 mg PO .COMPLEX 10/20/15 09/11/19 History turmeric root extract 500 mg 10/20/15 09/11/19 History capsule zolpidem 10 mg tablet 10 mg PO QHS PRN tab 10/20/15 09/11/19 History Stool Softener #1 ea 10/05/17 09/11/19 History cholecalciferol (vitamin D3) 125 5,000 unit PO BID cap 10/08/17 09/11/19 H istory mcg (5,000 unit) capsule magnesium oxide 500 mg capsule 500 mg PO BID cap 10/08/17 09/11/19 History testosterone 1.62 % (20.25 mg/1.25 1 mg TOPICAL DAILY 10/08/17 09/11/19 History gram) transdermal gel packet oxycodone-acetaminophen 1 each PO Q4HP PRN #10 tab 10/12/17 09/11/19 Rx dextroamphetamine-amphetamine 10 mg PO DAILY 09/11/19 09/11/19 History lorazepam 2 mg PO BIDP PRN 09/11/19 09/11/19 History phenazopyridine 200 mg PO PRN PRN 09/11/19 09/11/19 History warfarin 7 mg PO MOWEFR@1400 09/12/19 09/12/19 History terazosin 10 mg PO QDAY 09/13/19 09/13/19 History fosfomycin tromethamine 3 g PO Q3D #3 packet 09/14/19 Rx Allergies Allergy/AdvReac Type Severity Reaction Status Date / Time gentamicin [Gentamicin] Allergy Severe Other Verified 09/11/19 22:02 Iodinated Contrast Media Allergy Severe Other Verified 09/11/19 22:01 lactase [From Dairy Aid] Allergy Intermediate Flatulence Verified 09/11/19 22:01 midazolam [From Versed] Allergy Intermediate Other Verified 09/11/19 22:01 Penicillins Allergy Intermediate Swelling Verified 09/11/19 22:01 Physical Examination Vital Signs Vital signs: Temp Pulse Resp BP Pulse Ox 36.6 C 62 18 125/74 93 09/12/19 07:28 09/12/19 07:28 09/12/19 07:28 09/12/19 07:28 09/12/19 07:28 Additional Exam Additional exam: ao x 3, in nad no thrush no CVA tenderness no tenderness over anterior lower belly Results Laboratory Findings CBC and BMP: 09/14/19 05:08 09/14/19 05:08 ABG, PT/INR, D-dimer: PT/INR, D-dimer PT 25.6 sec (11.9-14.5) H 09/12/19 07:19 INR 2.3 (0.9-1.1) H 09/12/19 07:19 Abnormal lab findings: Abnormal Labs 09/11/19 09/11/19 09/11/19 18:32 18:32 18:32 RBC 3.95 L Hgb 12.9 L Hct 38.0 L MPV 10.7 H PT 25.5 H INR 2.3 H BUN 31 H Creatinine 1.6 H Glucose 119 H Triglycerides Urine Nitrate Urine Urobilinogen Ur Leukocyte Esterase Urine RBC Urine WBC 09/11/19 09/12/19 09/12/19 19:15 05:22 05:22 RBC 3.93 L Hgb 12.7 L Hct 38.5 L MPV 10.5 H PT INR BUN 27 H Creatinine 1.4 H Glucose Triglycerides 157 H Urine Nitrate Pos A Urine Urobilinogen 4.0 A Ur Leukocyte Esterase 250 A Urine RBC 5 H Urine WBC 60 H 09/12/19 07:19 RBC Hgb Hct MPV PT 25.6 H INR 2.3 H BUN Creatinine Glucose Triglycerides Urine Nitrate Urine Urobilinogen Ur Leukocyte Esterase Urine RBC Urine WBC A/P Narrative A/P Narrative: A: 1. Complicated UTI: - previous Cx have grown P aeruginosa with varying sensitivities. Most recent urine Cx from 09/10 growing Pseudomonas aeruginosa (sensi pending) and from 09/03 grew P aeruginosa (sens to cefepime, zosyn, aztreonam) - r/o nephrolithiasis and underlying prostatitis given recurrent UTIs with same bacteria, and current symptoms - no sepsis 2. Past Hx of left sided nephrectomy Recommendations: - based on CrCl (per CG formulla), change cefepime dosing to 2 gm q12 hrs - CT abd/pelvis without contrast - await blood Cx results - discussed with pt about PO Fosfomycin prophlyaxis for prevention of recurrent UTIs will follow Andrei Pack MD Infectious diseases Time Spent With Patient Time: Total time spent is greater than 50% in coordination of care (as documented) at patient's floor/unit and/or counseling patient:
[2019-09-12] MEDS ORDERED: PATIENTS OWN MEDICATION 1 DOSE MISCELL PO SCH (12:00)
[2019-09-12] MEDS ORDERED: PATIENTS OWN MEDICATION 1 DOSE MISCELL TOPICAL SCH (12:00)
[2019-09-12] MEDS: DEXTROAMPHETAMINE AMPHETAMINE 10 MG PO SCH (12:37)
[2019-09-12] MEDS: CEFEPIME 2 GM VIAL IV SCH ×2 (12:38→20:58)
[2019-09-12] MEDS: TESTOSTERONE 1.62% TOPICAL SCH (12:40)
--- NOTE | 2019-09-12 12:58 | Cat Scan Report ---
CLINICAL INFORMATION: Urinary tract infection. History of left nephrectomy COMPARISON: Abdomen and pelvic CT 07/30/2015 TECHNIQUE: 0.625 mm helical slices were obtained from the mid heart through the subtrochanteric regions. Following reconstruction, 2.5 mm sagittal, coronal and axial reformatted images were processed and reviewed at bone and soft tissue windows.The exam was performed using radiation dose optimization techniques including, but not limited to, automated exposure control, adjustment of the mA and/or kV according to patient size and use of iterative reconstruction technique. FINDINGS: Lung bases show no abnormality - no effusion. The visualized heart is grossly normal. Abdominal images show the noncontrasted gallbladder and bile ducts, liver, right kidney, adrenal glands, spleen, pancreas and aorta are normal in size, configuration and attenuation without focal lesion. No free air, free fluid or adenopathy. Ostomy in the left periumbilical region is seen as before. The noncontrasted stomach small large bowel show mild symmetric dilatation with moderate colonic stool developed mild ileus. Pelvic images show prostate and seminal vesicles to be unremarkable. There are six or seven stones in the urinary bladder ranging up to eight mm. Bone windows show no osseous abnormalities. IMPRESSION: 1. Multiple urinary bladder stones ranging up to 8 mm.. 2. Left nephrectomy changes. Right kidney normal. 3. Mild ileus pattern with moderate colonic stool. There is a ostomy through the left anterior abdominal wall which, suspect, is nonfunctional. Please correlate with clinical history Interpreted and Authenticated by: Matt Marte 09/12/19
[2019-09-12] MEDS ORDERED: WARFARIN 2 MG TABLET PO ONE (14:00)
[2019-09-12] MEDS: PHENAZOPYRIDINE 200 MG TABLET PO PRN ×2 (14:49→20:56)
[2019-09-12] MEDS: 0.9 % SODIUM CHLORIDE 1,000 ML IV SCH ×2 (16:07→22:45)
[2019-09-12] MEDS: ZOLPIDEM 5 MG TABLET PO PRN (20:57)
[2019-09-12] MEDS: DOCUSATE SODIUM 250 MG CAPSULE PO SCH (20:57)
[2019-09-12] MEDS: MAGNESIUM 400 MG PO SCH (20:57)
[2019-09-12] MEDS: SENNOSIDES/DOCUSATE SODIUM 1 TAB TABLET PO SCH (20:57)
[2019-09-12] MEDS: PSYLLIUM HUSK 6 GM PACKET PO SCH (20:58)
[2019-09-12] MEDS ORDERED: DOCUSATE SODIUM 100 MG CAPSULE PO SCH (21:00)
[2019-09-12] MEDS: ACETAMINOPHEN 325 MG TABLET PO PRN (21:03)
[2019-09-13] MEDS: TERAZOSIN 1 MG CAPSULE PO SCH (05:27)
[2019-09-13] MEDS: TESTOSTERONE 1.62% TOPICAL SCH ×2 (05:28→12:30)
[2019-09-13] MEDS: DOCUSATE SODIUM 250 MG CAPSULE PO SCH ×2 (05:28→21:33)
[2019-09-13] MEDS: PSYLLIUM HUSK 6 GM PACKET PO SCH ×2 (05:28→21:33)
[2019-09-13] MEDS: VITAMIN D3 5,000 UNIT CAPSULE PO SCH ×2 (05:28→21:34)
[2019-09-13] MEDS: MAGNESIUM 400 MG PO SCH ×2 (05:28→21:33)
[2019-09-13] MEDS: FINASTERIDE 5 MG TABLET PO SCH (05:28)
[2019-09-13] MEDS: PROPRANOLOL 40 MG TABLET PO SCH ×2 (05:28→21:33)
[2019-09-13] MEDS: ACETAMINOPHEN 325 MG TABLET PO PRN (05:28)
[2019-09-13] MEDS ORDERED: MAGNESIUM OXIDE 400 MG TABLET PO SCH (06:00)
[2019-09-13] MEDS: 0.9 % SODIUM CHLORIDE 10 ML SYRINGE IV SCH ×3 (06:31→21:36)
[2019-09-13] MEDS: DEXTROAMPHETAMINE AMPHETAMINE 10 MG PO SCH ×2 (06:39→12:30)
[2019-09-13 06:50] LABS: Hematocrit 38.3 % (40.1-51.0); Hemoglobin 12.5 g/dL (13.7-17.5); Mean Cell Volume 98.7 fL (80.0-100.0); Mean Corpuscular HGB Conc 32.6 g/dL (31.0-36.0); Mean Platelet Volume 10.3 fL (7.4-10.4); Platelet Count 181 K/mcL (140-440); RBC 3.88 M/mcL (4.63-6.08); Red Cell Distribution Width 13.3 % (11.5-14.5); WBC 5.9 K/mcL (4.50-11.00)
[2019-09-13 07:05] LABS: INR 2.5 (0.9-1.1); Prothrombin Time 27.1 sec (11.9-14.5)
[2019-09-13 07:48] LABS: Bilirubin,Direct < 0.2 mg/dL (0.0-0.3); Chloride 104 mmol/L (96-108)
[2019-09-13 07:49] LABS: ALT/SGPT 19 U/l (0-40); AST/SGOT 23 U/l (0-37); Albumin 3.6 gm/dL (3.2-5.2); Albumin/Globulin Ratio 1.6 (1.0-2.3); Alkaline Phosphatase 41 U/L (39-117); Bilirubin,Total 0.3 mg/dL (0.0-1.0); Blood Urea Nitrogen 23 mg/dl (8-23); Carbon Dioxide 26 mmol/L (22-30); Globulin 2.3 gm/dL (2.2-3.7); Glomerular Filtration Rate 48; Glucose 86 mg/dL (70-105); Lactate Dehydrogenase 204 U/L (94-250); Phosphorous 2.7 mg/dL (2.7-4.5); Triglycerides 135 mg/dl (<150); Uric Acid 5.2 mg/dL (2.5-8.0)
[2019-09-13 07:54] LABS: Eosinophils % (Manual) 5 % (0-7); Lymphocytes % 26 % (15-49); Monocytes % (Manual) 9 % (1-12); Platelet Estimate NORMAL (NORMAL); RBC Morphology NORMAL (NORMAL); Segmented Neutrophils % 60 % (38-78)
--- NOTE | 2019-09-13 07:56 | XRay Report ---
CLINICAL INFORMATION: Dyspnea COMPARISON: 01/14/2018. TECHNIQUE: Portable FINDINGS: The heart size, mediastinum and pulmonary vessels are unremarkable. The lungs are clear. There are no effusions. The bones and soft tissues are within normal limits. IMPRESSION: Normal chest. Interpreted and Authenticated by: Matt Marte 09/13/19
[2019-09-13 07:58] LABS: Calcium 8.3 mg/dl (8.6-10.4)
[2019-09-13] MEDS: MULTIVIT,THER IRON,CA,FA & MIN 1 TABLET PO SCH (09:47)
[2019-09-13] MEDS: CEFEPIME 2 GM VIAL IV SCH ×2 (09:47→21:33)
--- NOTE | 2019-09-13 10:37 | Internal Med Progress Note ---
SUBJECTIVE Subjective Patient information: Note initiated : 09/13/19 at 10:34 am Service Date, if different from initiated Date: [] Patient: Nelson Arizmendi a 79 y/o M admitted on 09/11/19 for Weakness, uti. Chief Complaint: [] Mr. 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 Patient failed outpatient trial of antibiotics. Work-up in the ER was essentially unremarkable without any signs of sepsis except for creatinine 1.6. Patient was started on cefepime current Pseudomonas infection over the last 3 years requiring IV antibiotics. Urine culture sensitivities pending. Hospital service was consulted for admission He appears quite disgruntled with medical care he received in the past including vestibular toxicity during gentamicin 3 years ago. Over the years he has had over 6 episodes of GI the last episode in April 03 he was treated at [place] on cefepime. He endorses associated low-grade fever but denies nausea, vomiting, increasing ostomy output 09/11-patient doing well. White count 5.7. INR 2.3, creatinine 1.4. On cefepime 1 g 3 times a day pyuria noted. Urine culture results in primary office pending. Await ID recommendations. Reviewed imaging from prior hospita lization at outside facility. No fever chills. Persistent abdominal discomfort. 09/12-patient doing a lot better. CT reveals multiple urinary bladder stones up to 8 mm. Denies abdominal discomfort nausea vomiting. White count 5.9 INR 2.5 creatinine 1.4. Continue antibiotics as per ID recommendations. Constitutional Vitals: Vital Signs Temp Pulse Resp BP Pulse Ox 98.1 F 58 L 18 130/79 93 09/13/19 08:00 09/13/19 08:00 09/13/19 08:00 09/13/19 08:00 09/13/19 08:00 Period Temp Pulse Resp BP Sys/Malhotra Pulse Ox Last 24 Hr 97.7 F-98.7 F 53-65 12-18 108-130/66-79 90-95 Intake and Output 09/12/19 09/13/19 09/13/19 21:59 05:59 13:59 Intake Total 1400 480 Output Total 975 Balance 425 480 Weight 81.42 kg 81.42 kg Patient Weight 09/14/19 05:59 Weight 81.42 kg alert oriented Nonlabored breathing No anxiety nondistended abdomen Colostomy Intake & Output: Intake & Output 09/12/19 09/13/19 09/13/19 21:59 05:59 13:59 Intake Total 1400 480 Output Total 975 Balance 425 480 Weight 81.42 kg 81.42 kg Intake: IV 1000 Sodium Chloride 0.9% 1,000 ml @ 1000 50 mls/hr IV .Q20H [facility] Rx#: [id number] Oral 400 480 Output: Void Amount 975 Other: Meal Lunch Percent of Meal Consumed 100% Urine Appearance Clear Urine Color [place] Urine Odor Normal # Voids 2 2 OBJ DATA Labs CBC & Chem 7: 09/13/19 05:38 09/13/19 05:38 Labs: Abnormal Lab Results 09/13/19 09/13/19 09/13/19 05:38 05:38 05:38 RBC 3.88 L Hgb 12.5 L Hct 38.3 L MPV PT 27.1 H INR 2.5 H BUN Creatinine 1.4 H Glucose Calcium 8.3 L Triglycerides Urine Nitrate Urine Urobilinogen Ur Leukocyte Esterase Urine RBC Urine WBC 09/12/19 09/12/19 09/12/19 07:19 05:22 05:22 RBC 3.93 L Hgb 12.7 L Hct 38.5 L MPV 10.5 H PT 25.6 H INR 2.3 H BUN 27 H Creatinine 1.4 H Glucose Calcium Triglycerides 157 H Urine Nitrate Urine Urobilinogen Ur Leukocyte Esterase Urine RBC Urine WBC 09/11/19 09/11/19 09/11/19 19:15 18:32 18:32 RBC Hgb Hct MPV PT 25.5 H INR 2.3 H BUN 31 H Creatinine 1.6 H Glucose 119 H Calcium Triglycerides Urine Nitrate Pos A Urine Urobilinogen 4.0 A Ur Leukocyte Esterase 250 A Urine RBC 5 H Urine WBC 60 H 09/11/19 18:32 RBC 3.95 L Hgb 12.9 L Hct 38.0 L MPV 10.7 H PT INR BUN Creatinine Glucose Calcium Triglycerides Urine Nitrate Urine Urobilinogen Ur Leukocyte Esterase Urine RBC Urine WBC Meds: Medications Acetaminophen (Tylenol) 650 mg PO Q4-6HP PRN; Protocol PRN Reason: Per Pain Protocol/Fever > 101 Last Admin: 09/13/19 05:28 Dose: 650 mg Documented by: Bisacodyl (Dulcolax) 10 mg AR Q2-3DAYS PRN PRN Reason: Constipation Cefepime HCl (Maxipime) 2 gm IV Q12H [facility] Last Admin: 09/13/19 09:47 Dose: 2 gm Documented by: Finasteride (Proscar) 5 mg PO DAILY@0600 [facility] Last Admin: 09/13/19 05:28 Dose: 5 mg Documented by: Sodium Chloride (Sodium Chloride 0.9%) 1,000 mls @ 50 mls/hr IV .Q20H [facility] Stop: 09/14/19 09:47 Last Admin: 09/12/19 22:45 Dose: 50 mls/hr Documented by: Acetaminophen (Ofirmev) 650 mg in 65 mls @ 130 mls/hr IV Q6HP PRN; Protocol PRN Reason: Per Pain Protocol/Fever > 101 Potassium Chloride 40 meq/ (Dextrose) 520 mls @ 130 mls/hr IV UD PRN PRN Reason: K+ = or < 3.5 Magnesium Sulfate (Magnesium Sulfate) 2 gm in 50 mls @ 50 mls/hr IV UD PRN PRN Reason: MG = or < 1.7 Iron Carb/Multivit/Molded Goods Controls Operator/Folic Acid (Multivitamin W/Minerals) 1 tab PO DAILY [facility] Last Admin: 09/13/19 09:47 Dose: 1 tab Documented by: Lorazepam (Ativan) 2 mg PO BIDP PRN PRN Reason: Anxiety Magnesium Oxide (Magnesium Oxide) 400 mg PO BID@0600,2100 [facility] Last Admin: 09/13/19 05:28 Dose: 400 mg Documented by: Melatonin (Melatonin 3mg Tablet) 3 mg PO HSP PRN PRN Reason: Insomnia Metoprolol Tartrate (Lopressor) 5 mg IV Q5M PRN PRN Reason: Heart Rate > 140 bpm Ondansetron HCl (Zofran Odt) 4 mg SL Q4-6HP PRN; Protocol PRN Reason: Nausea And Vomiting Ondansetron HCl (Zofran) 4 mg IV Q4-6HP PRN; Protocol PRN Reason: Nausea And Vomiting Last Admin: 09/12/19 14:33 Dose: 4 mg Documented by: Oxycodone/Acetaminophen (Percocet 10-325mg) 1 tab PO Q4HP PRN; Protocol PRN Reason: Pain Level > 6 Last Admin: 09/12/19 14:27 Dose: 1 tab Documented by: Docusate Sodium 250 (Mg Capsule) 1 dose PO BID@0600,2100 [facility] Last Admin: 09/13/19 05:28 Dose: 1 dose Documented by: Dextroamphetamine- Amphetamine 10 Mg Tablet 1 dose PO DAILY@0600 [facility] Last Admin: 09/13/19 06:39 Dose: 1 dose Documented by: Dextroamphetamine- Amphetamine 10 Mg Tablet 1 dose PO DAILY@1200 [facility] Last Admin: 09/12/19 12:37 Dose: 1 dose Documented by: Testosterone [ Androgel] 1.62% Transdermal Gel Packet 1 dose TOPICAL BID@0600,1200 [facility] Last Admin: 09/13/19 05:28 Dose: 1 dose Documented by: Phenazopyridine HCl (Pyridium) 200 mg PO TIDP PRN PRN Reason: PAINFUL URINATION Last Admin: 09/12/19 20:56 Dose: 200 mg Documented by: Polyethylene Glycol (Miralax) 17 gm PO DAILYP PRN PRN Reason: Constipation Potassium Chloride (Klor-Con) 40 meq PO DAILYP PRN PRN Reason: K+ < 3.5 Propranolol HCl (Inderal) 20 mg PO BID@06,2099 [facility] Last Admin: 09/13/19 05:28 Dose: 20 mg Documented by: Psyllium Hydrophilic Mucilloid (Metamucil) 6 gm PO BID@0600,2100 [facility] Last Admin: 09/13/19 05:28 Dose: 6 gm Documented by: Senna/Docusate Sodium (Senna Plus Tablet) 1 tab PO HS [facility] Last Admin: 09/12/19 20:57 Dose: 1 tab Documented by: Sodium Chloride (Saline Flush) 10 ml IV Q8 [facility] Last Admin: 09/13/19 06:31 Dose: Not Given Documented by: Terazosin HCl (Hytrin) 10 mg PO DAILY@0600 [facility] Vitamin D (Vitamin D3) 5,000 unit PO BID@0600,2100 [facility] Last Admin: 09/13/19 05:28 Dose: 5,000 unit Documented by: Warfarin Sodium (Coumadin Per Pharmacy) 1 order PO UD [facility] Zolpidem Tartrate (Ambien) 10 mg PO HSP PRN PRN Reason: Insomnia Last Admin: 09/12/19 20:57 Dose: 10 mg Documented by: A/P Narrative A/P Narrative: * Complicated recurrent UTI, multiple bladder calculi. Pseudomonas on repeat urine culture. Will need outpatient urology follow-up * History of CKD, unilateral kidney, avoid nephrotoxins. Creatinine down from 1.6-1.4 * History of DVT on anticoagulation on Coumadin. INR therapeutic * BPH on tamsulosin * History of rectal cancer status post colostomy. Continue colostomy care * Chronic pain on oxycodone * Prophylaxis currently on Coumadin PLAN * Continue IV cefepime * Outpatient urology consult * Coumadin dosing based on INR * Outpatient neuro follow-up for bladder calculi and recurrent UTI evaluation * PT OT nutrition support Time Spent With Patient Time: Total time spent is greater than 50% in coordination of care (as documented) at patient's floor/unit and/or counseling patient: QUALITY Stroke Symptom Onset Unknown: No VTE Deep Vein Thrombosis/Pulmonary Embolism Present on Admission: No
[2019-09-13] MEDS ORDERED: DOCUSATE SODIUM 100 MG CAPSULE PO PRN (11:50)
[2019-09-13] MEDS ORDERED: WARFARIN 5 MG TABLET PO SCH (14:00)
[2019-09-13] MEDS: 0.9 % SODIUM CHLORIDE 1,000 ML IV SCH ×2 (15:27→20:04)
[2019-09-13] MEDS: PHENAZOPYRIDINE 200 MG TABLET PO PRN (21:34)
[2019-09-13] MEDS: SENNOSIDES/DOCUSATE SODIUM 1 TAB TABLET PO SCH (21:34)
[2019-09-13] MEDS: ZOLPIDEM 5 MG TABLET PO PRN (21:34)
[2019-09-14] MEDS ORDERED: TERAZOSIN 5 MG CAPSULE PO SCH (06:00)
[2019-09-14 06:20] LABS: Hematocrit 37.9 % (40.1-51.0); Hemoglobin 12.7 g/dL (13.7-17.5); Mean Cell Volume 97.4 fL (80.0-100.0); Mean Corpuscular HGB Conc 33.5 g/dL (31.0-36.0); Mean Platelet Volume 10.3 fL (7.4-10.4); Platelet Count 176 K/mcL (140-440); RBC 3.89 M/mcL (4.63-6.08); Red Cell Distribution Width 13.1 % (11.5-14.5)
[2019-09-14] MEDS: MAGNESIUM 400 MG PO SCH (06:25)
[2019-09-14] MEDS: VITAMIN D3 5,000 UNIT CAPSULE PO SCH (06:25)
[2019-09-14] MEDS: PSYLLIUM HUSK 6 GM PACKET PO SCH (06:25)
[2019-09-14] MEDS: DOCUSATE SODIUM 250 MG CAPSULE PO SCH (06:25)
[2019-09-14] MEDS: PROPRANOLOL 40 MG TABLET PO SCH (06:26)
[2019-09-14] MEDS: FINASTERIDE 5 MG TABLET PO SCH (06:26)
[2019-09-14] MEDS: DEXTROAMPHETAMINE AMPHETAMINE 10 MG PO SCH (06:26)
[2019-09-14] MEDS: TESTOSTERONE 1.62% TOPICAL SCH (06:27)
[2019-09-14] MEDS: 0.9 % SODIUM CHLORIDE 10 ML SYRINGE IV SCH (06:27)
[2019-09-14 06:38] LABS: INR 2.7 (0.9-1.1); Prothrombin Time 29.3 sec (11.9-14.5)
[2019-09-14 06:51] LABS: ALT/SGPT 18 U/l (0-40); AST/SGOT 22 U/l (0-37); Albumin 3.5 gm/dL (3.2-5.2); Albumin/Globulin Ratio 1.5 (1.0-2.3); Alkaline Phosphatase 43 U/L (39-117); Bilirubin,Direct < 0.2 mg/dL (0.0-0.3); Bilirubin,Total 0.3 mg/dL (0.0-1.0); Blood Urea Nitrogen 17 mg/dl (8-23); Calcium 8.7 mg/dl (8.6-10.4); Carbon Dioxide 26 mmol/L (22-30); Chloride 103 mmol/L (96-108); Globulin 2.4 gm/dL (2.2-3.7); Glomerular Filtration Rate 52; Glucose 91 mg/dL (70-105); Lactate Dehydrogenase 208 U/L (94-250); Triglycerides 148 mg/dl (<150); Uric Acid 4.5 mg/dL (2.5-8.0)
[2019-09-14 06:54] LABS: Phosphorous 2.3 mg/dL (2.7-4.5)
[2019-09-14 07:25] LABS: Eosinophils % (Manual) 7 % (0-7); Lymphocytes % 29 % (15-49); Monocytes % (Manual) 7 % (1-12); Platelet Estimate NORMAL (NORMAL); RBC Morphology NORMAL (NORMAL); Reactive Lymphocytes 10 % (0-2); Segmented Neutrophils % 47 % (38-78)
--- NOTE | 2019-09-14 08:12 | Internal Med Progress Note ---
SUBJECTIVE Subjective Patient information: Note initiated : 09/14/19 at 8:00 am Service Date, if different from initiated Date: [] Patient: Nelson Arizmendi 79 y/o M admitted on 09/11/19 for Weakness, uti. Chief Complaint: [] Pt feels better. Denied any fever, chills, n/v, diarrhea. Discussed current plan of antibiotics and subseq f/u in ID clinic. Constitutional Vitals: Vital Signs Temp Pulse Resp BP Pulse Ox 36.6 C 58 L 14 115/71 95 09/14/19 07:54 09/14/19 07:54 09/14/19 07:54 09/14/19 07:54 09/14/19 07:54 Period Temp Pulse Resp BP Sys/Malhotra Pulse Ox Last 24 Hr 36.6 C-36.9 C 55-72 12-18 105-124/64-76 90-95 Intake and Output 09/13/19 09/14/19 09/14/19 21:59 05:59 13:59 Intake Total 1720 200 Balance 1720 200 Weight 86.046 kg Intake & Output: Intake & Output 09/13/19 09/14/19 09/14/19 21:59 05:59 13:59 Intake Total 1720 200 Balance 1720 200 Weight 86.046 kg Intake: IV 1000 Sodium Chloride 0.9% 1,000 ml @ 1000 50 mls/hr IV .Q20H [facility] Rx#: [id number] Oral 720 200 Other: Meal Lunch Percent of Meal Consumed 100% Feeding Ability Independent Urine Appearance Clear Urine Color [place] Stool Consistency Loose # Voids 1 1 Additional findings Additional findings: ao x 3, in nad no CVA tenderness OBJ DATA Labs CBC & Chem 7: 09/14/19 05:08 09/14/19 05:08 Labs: Abnormal Lab Results 09/14/19 09/14/19 09/14/19 05:08 05:08 05:08 RBC 3.89 L Hgb 12.7 L Hct 37.9 L MPV Reactive Lymphocytes 10 H PT 29.3 H INR 2.7 H BUN Creatinine 1.3 H Glucose Calcium Phosphorus 2.3 L Triglycerides Urine Nitrate Urine Urobilinogen Ur Leukocyte Esterase Urine RBC Urine WBC 09/13/19 09/13/19 09/13/19 05:38 05:38 05:38 RBC 3.88 L Hgb 12.5 L Hct 38.3 L MPV Reactive Lymphocytes PT 27.1 H INR 2.5 H BUN Creatinine 1.4 H Glucose Calcium 8.3 L Phosphorus Triglycerides Urine Nitrate Urine Urobilinogen Ur Leukocyte Esterase Urine RBC Urine WBC 09/12/19 09/12/19 09/12/19 07:19 05:22 05:22 RBC 3.93 L Hgb 12.7 L Hct 38.5 L MPV 10.5 H Reactive Lymphocytes PT 25.6 H INR 2.3 H BUN 27 H Creatinine 1.4 H Glucose Calcium Phosphorus Triglycerides 157 H Urine Nitrate Urine Urobilinogen Ur Leukocyte Esterase Urine RBC Urine WBC 09/11/19 09/11/19 09/11/19 19:15 18:32 18:32 RBC Hgb Hct MPV Reactive Lymphocytes PT 25.5 H INR 2.3 H BUN 31 H Creatinine 1.6 H Glucose 119 H Calcium Phosphorus Triglycerides Urine Nitrate Pos A Urine Urobilinogen 4.0 A Ur Leukocyte Esterase 250 A Urine RBC 5 H Urine WBC 60 H 09/11/19 18:32 RBC 3.95 L Hgb 12.9 L Hct 38.0 L MPV 10.7 H Reactive Lymphocytes PT INR BUN Creatinine Glucose Calcium Phosphorus Triglycerides Urine Nitrate Urine Urobilinogen Ur Leukocyte Esterase Urine RBC Urine WBC Meds: Medications Acetaminophen (Tylenol) 650 mg PO Q4-6HP PRN; Protocol PRN Reason: Per Pain Protocol/Fever > 101 Last Admin: 09/13/19 05:28 Dose: 650 mg Documented by: Cefepime HCl (Maxipime) 2 gm IV Q12H [facility] Last Admin: 09/13/19 21:33 Dose: 2 gm Documented by: Docusate Sodium (Colace) 100 mg PO BIDP PRN PRN Reason: Constipation Finasteride (Proscar) 5 mg PO DAILY@0600 [facility] Last Admin: 09/14/19 06:26 Dose: 5 mg Documented by: Sodium Chloride (Sodium Chloride 0.9%) 1,000 mls @ 50 mls/hr IV .Q20H [facility] Stop: 09/14/19 09:47 Last Admin: 09/13/19 20:04 Dose: 50 mls/hr Documented by: Acetaminophen (Ofirmev) 650 mg in 65 mls @ 130 mls/hr IV Q6HP PRN; Protocol PRN Reason: Per Pain Protocol/Fever > 101 Potassium Chloride 40 meq/ (Dextrose) 520 mls @ 130 mls/hr IV UD PRN PRN Reason: K+ = or < 3.5 Magnesium Sulfate (Magnesium Sulfate) 2 gm in 50 mls @ 50 mls/hr IV UD PRN PRN Reason: MG = or < 1.7 Iron Carb/Multivit/Component Assembler Supervisor/Folic Acid (Multivitamin W/Minerals) 1 tab PO DAILY [facility] Last Admin: 09/13/19 09:47 Dose: 1 tab Documented by: Lorazepam (Ativan) 2 mg PO BIDP PRN PRN Reason: Anxiety Magnesium Oxide (Magnesium Oxide) 400 mg PO BID@0600,2100 [facility] Last Admin: 09/14/19 06:25 Dose: 400 mg Documented by: Melatonin (Melatonin 3mg Tablet) 3 mg PO HSP PRN PRN Reason: Insomnia Metoprolol Tartrate (Lopressor) 5 mg IV Q5M PRN PRN Reason: Heart Rate > 140 bpm Ondansetron HCl (Zofran Odt) 4 mg SL Q4-6HP PRN; Protocol PRN Reason: Nausea And Vomiting Ondansetron HCl (Zofran) 4 mg IV Q4-6HP PRN; Protocol PRN Reason: Nausea And Vomiting Last Admin: 09/12/19 14:33 Dose: 4 mg Documented by: Oxycodone/Acetaminophen (Percocet 10-325mg) 1 tab PO Q4HP PRN; Protocol PRN Reason: Pain Level > 6 Last Admin: 09/12/19 14:27 Dose: 1 tab Documented by: Docusate Sodium 250 (Mg Capsule) 1 dose PO BID@0600,2100 [facility] Last Admin: 09/14/19 06:25 Dose: 1 dose Documented by: Dextroamphetamine- Amphetamine 10 Mg Tablet 1 dose PO DAILY@0600 [facility] Last Admin: 09/14/19 06:26 Dose: 1 dose Documented by: Dextroamphetamine- Amphetamine 10 Mg Tablet 1 dose PO DAILY@1200 [facility] Last Admin: 09/13/19 12:30 Dose: 1 dose Documented by: Testosterone [ Androgel] 1.62% Transdermal Gel Packet 1 dose TOPICAL BID@0600,1200 [facility] Last Admin: 09/14/19 06:27 Dose: 1 dose Documented by: Phenazopyridine HCl (Pyridium) 200 mg PO TIDP PRN PRN Reason: PAINFUL URINATION Last Admin: 09/13/19 21:34 Dose: 200 mg Documented by: Polyethylene Glycol (Miralax) 17 gm PO DAILYP PRN PRN Reason: Constipation Last Admin: 09/13/19 12:30 Dose: 17 gm Documented by: Potassium Chloride (Klor-Con) 40 meq PO DAILYP PRN PRN Reason: K+ < 3.5 Propranolol HCl (Inderal) 20 mg PO BID@0600,2100 [facility] Last Admin: 09/14/19 06:26 Dose: 20 mg Documented by: Psyllium Hydrophilic Mucilloid (Metamucil) 6 gm PO BID@0600,2100 [facility] Last Admin: 09/14/19 06:25 Dose: 6 gm Documented by: Senna/Docusate Sodium (Senna Plus Tablet) 1 tab PO HS [facility] Last Admin: 09/13/19 21:34 Dose: 1 tab Documented by: Sodium Chloride (Saline Flush) 10 ml IV Q8 [facility] Last Admin: 09/14/19 06:27 Dose: Not Given Documented by: Terazosin HCl (Hytrin) 10 mg PO DAILY@0600 [facility] Last Admin: 09/14/19 06:25 Dose: 10 mg Documented by: Vitamin D (Vitamin D3) 5,000 unit PO BID@0600,2100 [facility] Last Admin: 09/14/19 06:25 Dose: 5,000 unit Documented by: Warfarin Sodium (Coumadin Per Pharmacy) 1 order PO [facility] Zolpidem Tartrate (Ambien) 10 mg PO HSP PRN PRN Reason: Insomnia Last Admin: 09/13/19 21:34 Dose: 10 mg Documented by: A/P Narrative A/P Narrative: A: 1. Complicated UTI: pt has one kidney - previous Cx have grown P aeruginosa with varying sensitivities. Most recent urine Cx from 09/10 and 09/11 growing Pseudomonas aeruginosa (intermediate to Cefepime, sens to Ceftazidime, aminoglycosides and pip-tazo) and from 09/03 grew P aeruginosa (sens to cefepime, zosyn, aztreonam). Given it is a UTI affecting the bladder only, i snot associated with bacteremia or sepsis, Cefepime at current dosing could be used even though it is intermediate. - Bladder stones potential risk factor for recurrent UTI with same pathogen: P aeruginosa - no sepsis - given recurrent UTIs, pt meets criteria for antibiotic prophylaxis as OP 2. BPH with elev PSA: pt takes testosterone 3. Hx of rectal cancer, left nephrectomy Recommendations: - Pt could be discharged from ID standpoint later today. Stop Cefepime 2 gm q12 hrs at discharge and then start Fosfomycin tomorrow. Start PO Fosfomycin 3 gm every 3 days for 3 doses. His dose schedule would be: on Sep 14, Sep 17, Sep 20. - F/u in ID clinic at [facility] on Sep 22 - pt counseled to increase intake of fluids to at least 50 ounces per day to prevent subsequent stones and UTIs - Urology outpatient follow up for bladder stones, elevated PSA and BPH Andrei Pack MD Infectious diseases Time Spent With Patient Time: Total time spent is greater than 50% in coordination of care (as documented) at patient's floor/unit and/or counseling patient: QUALITY Stroke Symptom Onset Unknown: No VTE Deep Vein Thrombosis/Pulmonary Embolism Present on Admission: No
[2019-09-14] MEDS: CEFEPIME 2 GM VIAL IV SCH (09:38)
[2019-09-14] MEDS: MULTIVIT,THER IRON,CA,FA & MIN 1 TABLET PO SCH (09:38)
--- NOTE | 2019-09-14 10:17 | Discharge Plan ---
Discharge Plan Patient/Caregiver Discharge Instructions Prescriptions: No Action sildenafil 100 mg tablet 100 mg PO .COMPLEX RF: 0 psyllium powder 1 tbsp PO BID RF: 0 cyanocobalamin (vitamin B-12) 1,000 mcg/mL solution 1,000 mcg IM .[id number] RF: 0 propranolol 20 mg tablet 20 mg PO BID RF: 0 zolpidem 10 mg tablet 10 mg PO QHS PRN (Reason: Sleep) RF: 0 (DME) turmeric root extract 500 mg capsule 500 mg .ROUTE .MEDSUPPLY RF: 0 cholecalciferol (vitamin D3) 5,000 unit capsule 5,000 unit PO BID RF: 0 (DME) Stool Softener Qty: 1 RF: 0 magnesium oxide 500 mg capsule 500 mg PO BID RF: 0 testosterone [AndroGel] 1.62 % (20.25 mg/1.25 gram) gel in packet 1 mg TOPICAL DAILY RF: 0 warfarin 5 MG tablet 5 mg PO SUTUTHSA@1400 RF: 0 oxycodone-acetaminophen 1 EACH tablet 1 each PO Q4HP PRN (Reason: Pain Level > 6) Qty: 10 RF: 0 phenazopyridine 200 mg tablet 200 mg PO PRN PRN (Reason: urinary) RF: 0 dextroamphetamine-amphetamine 10 mg Tablet 10 mg PO DAILY RF: 0 lorazepam 2 mg Tablet 2 mg PO BIDP PRN (Reason: Anxiety) RF: 0 warfarin 2 mg Tablet 7 mg PO MOWEFR@1400 RF: 0 terazosin 10 mg Capsule 10 mg PO QDAY RF: 0 Follow Up Plan Follow up with: Jose Leggett MD [Primary Care Provider] -
--- NOTE | 2019-09-14 10:20 | Discharge Summary ---
Discharge Provider Provider Patient information: Note initiated : 09/14/19 at 10:17 am Service Date, if different from initiated Date: [] Patient: Nelson Arizmendi a 79 y/o M admitted on 09/11/19 for Weakness, uti. Discharge diagnosis * Complicated Pseudomonas recurrent UTI, multiple bladder calculi. Continue antibiotics as per ID oral fosfomycin 3 g for 3 doses every 72 hours followed by ID clinic follow-up. Recommend outpatient urology follow-up * History of CKD, unilateral kidney, avoid nephrotoxins. 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 INR therapeutic * BPH continue tamsulosin * History of rectal cancer status post colostomy. * Chronic pain on oxycodone Brief hospital course Mr. 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 Patient failed outpatient trial of antibiotics. Work-up in the ER was essentially unremarkable without any signs of sepsis except for creatinine 1.6. Patient was started on cefepime current Pseudomonas infection over the last 3 years requiring IV antibiotics. Urine culture sensitivities pending. Hospital service was consulted for admission He appears quite disgruntled with medical care he received in the past including vestibular toxicity during gentamicin 3 years ago. Over the years he has had over 6 episodes of GI the last episode in April 03 he was treated at [facility] on cefepime. He endorses associated low-grade fever but denies nausea, vomiting, increasing ostomy output 09/11-patient doing well. White count 5.7. INR 2.3, creatinine 1.4. On cefepime 1 g 3 times a day pyuria noted. Urine culture results in primary office pending. Await ID recommendations. Reviewed imaging from prior hosp italization at outside facility. No fever chills. Persistent abdominal discomfort. 09/12-patient doing a lot better. CT reveals multiple urinary bladder stones up to 8 mm. Denies abdominal discomfort nausea vomiting. White count 5.9 INR 2.5 creatinine 1.4. Continue antibiotics as per ID recommendations. 09/13-patient doing well. Discharging as per ID recommendations on fosfomycin 3 g every 3-day for 3 doses to be scheduled in September 14/[place] September 20 and follow-up with ID clinic on September 22. Also recommend evaluation by urology for multiple bladder stones. Date of admission: 09/11/19 21:39 Discharge date: 09/14/19 Primary care physician: Jose Leggett Consults: 09/12/19 07:32 Consult to Physician [CONS] Routine Comment: Consulting Provider: Marlon Talbot Reason For Exam: Physician to Consult 09/12/19 09:36 Consult to Physician [CONS] Routine Comment: Consulting Provider: Andrei Pack Reason For Exam: Physician to Consult Discharge Meds Discharge Medications Home Medications warfarin 5 mg PO SUTUTHSA@1400 05/27/15 [History Confirmed 09/12/19 Last Taken 09/09/19 21:00] cyanocobalamin (vitamin B-12) 1,000 mcg/mL injection solution 1,000 mcg IM .[id number] ml 10/20/15 [History Confirmed 09/11/19 Last Taken 08/29/19] propranolol 20 mg tablet 20 mg PO BID tab 10/20/15 [History Confirmed 09/11/19 Last Taken 09/11/19 06:00] psyllium 1 tbsp PO BID 10/20/15 [History Confirmed 09/11/19 Last Taken 09/11/19 06:00] sildenafil 100 mg tablet 100 mg PO .COMPLEX 10/20/15 [History Confirmed 09/11/19 Last Taken 10/11/17] turmeric root extract 500 mg capsule 10/20/15 [History Confirmed 09/11/19 Last Taken 10/11/17] zolpidem 10 mg tablet 10 mg PO QHS PRN tab 10/20/15 [History Confirmed 09/11/19 Last Taken 09/10/19 21:00] Stool Softener #1 ea 10/05/17 [History Confirmed 09/11/19 Last Taken Unknown] cholecalciferol (vitamin D3) 125 mcg (5,000 unit) capsule 5,000 unit PO BID cap 10/08/17 [History Confirmed 09/11/19 Last Taken 09/11/19 06:00] magnesium oxide 500 mg capsule 500 mg PO BID cap 10/08/17 [History Confirmed 09/11/19 Last Taken 09/11/19 06:00] testosterone 1.62 % (20.25 mg/1.25 gram) transdermal gel packet 1 mg TOPICAL DAILY 10/08/17 [History Confirmed 09/11/19 Last Taken 09/11/19 12:00] oxycodone-acetaminophen 1 each PO Q4HP PRN #10 tab 10/12/17 [Rx Confirmed 09/11/19 Last Taken Unknown] dextroamphetamine-amphetamine 10 mg PO DAILY 09/11/19 [History Confirmed 09/11/19 Last Taken Unknown] lorazepam 2 mg PO BIDP PRN 09/11/19 [History Confirmed 09/11/19 Last Taken 21:00] phenazopyridine 200 mg PO PRN PRN 09/11/19 [History Confirmed 09/11/19 Last Taken 09/11/19 06:00] warfarin 7 mg PO MOWEFR@1400 09/12/19 [History Confirmed 09/12/19 Last Taken 09/10/19 21:00] terazosin 10 mg PO QDAY 09/13/19 [History Confirmed 09/13/19 Last Taken Unknown] fosfomycin tromethamine 3 g PO Q3D #3 packet 09/14/19 [Rx Last Taken Unknown] COURSE Hospital Course Hospital course: . Discharge diagnosis: . Time Spent with Patient Time attestation: Total time spent providing and/or coordinating discharge services: EXAM Constitutional Vitals: Temp Pulse Resp BP Pulse Ox 97.8 F 58 L 14 115/71 95 09/14/19 07:54 09/14/19 07:54 09/14/19 07:54 09/14/19 07:54 09/14/19 07:54 Discharge Data Data Completed and Pending Labs on day of discharge: Labs from last 24 hours 09/14/19 09/14/19 09/14/19 05:08 05:08 05:08 WBC 6.0 RBC 3.89 L Hgb 12.7 L Hct 37.9 L MCV 97.4 MCH 32.6 MCHC 33.5 RDW 13.1 Plt Count 176 MPV 10.3 Total Counted 100 Seg Neutrophils % 47 Band Neutrophils % Not Reportable Lymphocytes % 29 Monocytes % (Manual) 7 Eosinophils % (Manual) 7 Reactive Lymphocytes 10 H Platelet Estimate Normal RBC Morphology Normal PT 29.3 H INR 2.7 H Sodium 138 Potassium 4.2 Chloride 103 Carbon Dioxide 26 Anion Gap 9.0 BUN 17 Creatinine 1.3 H GFR Calculation 52 Glucose 91 Uric Acid 4.5 Calcium 8.7 Phosphorus 2.3 L Magnesium 2.5 Total Bilirubin 0.3 Direct Bilirubin < 0.2 GGT 21 AST 22 ALT 18 Alkaline Phosphatase 43 Lactate Dehydrogenase 208 Total Protein 5.9 Albumin 3.5 Globulin 2.4 Albumin/Globulin Ratio 1.5 Triglycerides 148 Preliminary micro results at discharge 09/11/19 18:34 Blood Culture - Preliminary Blood 09/11/19 18:23 Blood Culture - Preliminary Blood Gram positive cocci Discharge Plan Patient/Caregiver Discharge Instructions Activity: increase activity as tolerated Diet: Regular Diet Prescriptions: New fosfomycin tromethamine 3 gram packet 3 g PO Q3D Qty: 3 RF: 0 Continued sildenafil 100 mg tablet 100 mg PO .COMPLEX RF: 0 psyllium powder 1 tbsp PO BID RF: 0 cyanocobalamin (vitamin B-12) 1,000 mcg/mL solution 1,000 mcg IM .[id number] RF: 0 propranolol 20 mg tablet 20 mg PO BID RF: 0 zolpidem 10 mg tablet 10 mg PO QHS PRN (Reason: Sleep) RF: 0 (DME) turmeric root extract 500 mg capsule 500 mg .ROUTE .MEDSUPPLY RF: 0 cholecalciferol (vitamin D3) 5,000 unit capsule 5,000 unit PO BID RF: 0 (DME) Stool Softener Qty: 1 RF: 0 magnesium oxide 500 mg capsule 500 mg PO BID RF: 0 testosterone [AndroGel] 1.62 % (20.25 mg/1.25 gram) gel in packet 1 mg TOPICAL DAILY RF: 0 warfarin 5 MG tablet 5 mg PO SUTUTHSA@1400 RF: 0 oxycodone-acetaminophen 1 EACH tablet 1 each PO Q4HP PRN (Reason: Pain Level > 6) Qty: 10 RF: 0 phenazopyridine 200 mg tablet 200 mg PO PRN PRN (Reason: urinary) RF: 0 dextroamphetamine-amphetamine 10 mg Tablet 10 mg PO DAILY RF: 0 lorazepam 2 mg Tablet 2 mg PO BIDP PRN (Reason: Anxiety) RF: 0 warfarin 2 mg Tablet 7 mg PO MOWEFR@1400 RF: 0 terazosin 10 mg Capsule 10 mg PO QDAY RF: 0 Follow Up Plan Follow up with: Jose Leggett MD [Primary Care Provider] - Patient Disposition: Home, Self-Care Rehab Potential: Fair Overall status at discharge: patient is back to baseline Discharge Orders: Discharge Order (Routine); Ordered 09/14/19 Ordered By: Marlon PAYNE VTE Deep Vein Thrombosis/Pulmonary Embolism Present on Admission: No
[2019-09-14] MEDS ORDERED: WARFARIN 5 MG TABLET PO SCH (14:00)
== END 2019-09-14 12:00 | disposition home or self-care (01) | DRG 690 ==
LOC: ED 18:04 → MEDSUR 21:39
PROVIDERS: ADMIT Internal Medicine; ATTEND Internal Medicine

== ENCOUNTER 2021-06-05 16:45 | Inpatient (IN) ==
[2021-06-05] MEDS ORDERED: IOPAMIDOL 100 ML BOTTLE IV ONE (16:46)
[2021-06-05] MEDS ORDERED: ONDANSETRON 4 MG/2 ML VIAL IV ONE (17:36)
[2021-06-05] MEDS ORDERED: morphine 10 MG/ML VIAL IV ONE (17:36)
--- NOTE | 2021-06-05 17:38 | Emergency Department Note ---
HPI General Chief complaint: Abdominal Pain Stated complaint: abdominal pain Time Seen by Provider: 06/05/21 17:00 Source: patient Mode of arrival: ambulatory Limitations: no limitations History of Present Illness HPI Narrative: Narrative: 80 yo M w/ h/o prostate CA, colon CA s/p ostomy, PE, p/w epigastric/periumbi lical abd pain. He reports that he was mowing the lawn today when he had the sudden onset of squeezing/cramping epigastric/periumbilical pain that was nonradiating, w/ no alleviating/aggravating factors. He has never had similar pain in the past. He has had nausea and vomiting w/ this consisting of undigested food. He has not had any new dysuria (he does have this chronically likely d/t prostate CA), his ostomy output is at baseline. He denies F/C, and has no other complaints at this time. Of note he is taking a Rastafari remedy for his prostate CA and generally prefers Rastafari medicine over western medicine. Related Data Home Medications Medication Instructions Recorded Confirmed warfarin 5 mg tablet 5 mg PO SUTUTHSA@1400 05/27/15 06/05/21 cyanocobalamin (vitamin B-12) 1,000 mcg IM .[id number] ml 10/20/15 06/05/21 1,000 mcg/mL injection solution propranolol 20 mg tablet 20 mg PO BID tab 10/20/15 06/05/21 turmeric root extract 500 mg 10/20/15 06/05/21 capsule zolpidem 10 mg tablet 10 mg PO QHS PRN tab 10/20/15 06/05/21 cholecalciferol (vitamin D3) 125 5,000 unit PO BID cap 10/08/17 06/05/21 mcg (5,000 unit) capsule magnesium oxide 500 mg capsule 500 mg PO BID cap 10/08/17 06/05/21 dextroamphetamine-amphetamine 10 10 mg PO DAILY 09/11/19 06/05/21 mg tablet lorazepam 2 mg tablet 2 mg PO BIDP PRN 09/11/19 06/05/21 warfarin 2 mg tablet 7 mg PO MOWEFR@1400 09/12/19 06/02/21 docusate sodium 250 mg capsule 500 mg PO BID cap 11/01/20 06/05/21 fosfomycin tromethamine 3 gram 1 packet PO ONCE 11/01/20 06/05/21 oral packet polyethylene glycol 3350 17 17 g PO QDAY PRN 11/01/20 06/05/21 gram/dose oral powder ubidecarenone-omega 3-vit E 25 1 cap PO QDAY 11/02/20 06/05/21 mg-150 (90-60) mg-200 unit capsule (Co X-32-Obsvmhm E-Fish Oil) Medical Marijuana .ROUTE 12/09/20 06/02/21 phenazopyridine 100 mg tablet 100 mg PO PRN PRN 06/05/21 06/05/21 (Pyridium) Previous Rx's Medication Instructions Recorded hydrocodone 5 mg-acetaminophen 325 1 tab PO QHS PRN #30 tab 04/26/21 mg tablet oxycodone 5 mg tablet 5 mg PO QHS PRN #30 tab 06/02/21 Allergies Allergy/AdvReac Type Severity Reaction Status Date / Time gentamicin [Gentamicin] Allergy Severe Other Verified 06/05/21 16:55 Iodinated Contrast Media Allergy Severe Other Verified 06/05/21 16:55 lactase [From Dairy Aid] Allergy Intermediate Flatulence Verified 06/05/21 16:55 midazolam [From Versed] Allergy Intermediate Other Verified 06/05/21 16:55 Penicillins Allergy Intermediate Swelling Verified 06/05/21 16:55 ciprofloxacin Allergy Unknown Verified 06/05/21 16:55 omeprazole Allergy Unknown Verified 06/05/21 16:55 penicillin G Allergy Unknown Verified 06/05/21 16:55 sulfamethoxazole Allergy Unknown Verified 06/05/21 16:55 [From Bactrim] trimethoprim [From Bactrim] Allergy Unknown Verified 06/05/21 16:55 Review of Systems ROS ROS Narrative: Narrative: All systems ED: reviewed and negative except as stated. 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) Severe depression (Chronic) Anxiety (Chronic) Seborrheic keratosis (Chronic) Nuclear senile cataract (Chronic) Chronic allergic conjunctivitis (Chronic) Tear film insufficiency (Chronic) Disequilibrium (Chronic) Bronchospasm (Chronic) Hydronephrosis (Chronic) Chest pain (Chronic) 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 (Chronic) Dermatochalasis (Chronic) Elevated PSA (Chronic) Sensorineural hearing loss (SNHL), bilateral (Chronic) Impotence (Chronic) Vitamin B12 deficiency anemia (Chronic) Anorexia (Chronic) Carcinoma of colon (Chronic) Dermatitis (Chronic) Rosacea (Chronic) Chronic post-traumatic stress disorder (Chronic) Tremor (Chronic) Port-A-Cath in place (Chronic) Deep vein thrombosis of lower extremity (Chronic) Thrombophilia (Chronic) Dysphagia (Chronic) Concussion with loss of consciousness (Chronic) Urinary tract infection (Chronic) Complicated urinary tract infection (Chronic) Rectal cancer (Chronic) Pseudomonas infection (Chronic) Hydroureteronephrosis (Chronic) Gross hematuria (Chronic) Symptom of bladder outlet obstruction (Chronic) Hypogonadism (Chronic) Mumps orchitis (Chronic) Thrombophlebitis (Chronic) Numbness (Chronic) Edema of left lower extremity (Chronic) History of bladder infections (Chronic) History of nephrectomy, left (Chronic) Prostate cancer (Chronic) History of bladder stone (Chronic) Chronic pelvic pain in male (Chronic) Lumbar spondylosis (Chronic) Radiculopathy (Chronic) Peripheral neuropathy (Chronic) Facet arthropathy (Chronic) Medical marijuana use (Chronic) Chronic pain (Chronic) Other low back pain (Chronic) Shortness of breath (Acute) Upper respiratory infection, viral (Acute) Bladder pain (Acute) Chronic pelvic pain in male (Acute) Medical History Anorexia Anxiety Back pain Bronchospasm Carcinoma of colon Chest pain Chronic allergic conjunctivitis Chronic pain Chronic pelvic pain in male Chronic post-traumatic stress disorder Chronic pyelonephritis Chronic urinary tract infection Complicated urinary tract infection Concussion Concussion with loss of consciousness Deep vein thrombosis of lower extremity Depression Dermatitis Dermatochalasis Disequilibrium Dry eye syndrome Dysphagia Edema of left lower extremity Elevated PSA Erectile dysfunction Facet arthropathy Gastroesophageal reflux disease with stricture Gross hematuria History of bladder infections History of bladder stone History of colon cancer Hydronephrosis Hydroureteronephrosis Left Hypogonadism Impotence care home current use of anticoagulant Lumbar spondylosis Medical marijuana use Mumps orchitis Nuclear senile cataract Numbness Bilateral upper thighs Other low back pain Peripheral neuropathy Poor venous access Port-A-Cath in place Prostate cancer Pseudomonas infection Pulmonary embolism and infarction Radiculopathy Rectal cancer Right acetabular fracture Rosacea Seborrheic keratosis Sensorineural hearing loss (SNHL), bilateral Severe depression Status post nephrectomy Symptom of bladder outlet obstruction Tear film insufficiency Thrombophilia Thrombophlebitis Left Toe injury 08/2015-Dropped piece of drywall on toe Tremor Urinary tract infection Venous thrombosis and embolism Vertigo Vitamin B12 deficiency anemia Surgical History History of back surgery (~1996) History of biopsy (~2005) History of creation of ostomy colostomy History of cystoscopy History of nephrectomy, left History of nephrostomy Percutaneous History of removal of Port-a-Cath 10/12/2017 History of surgery proctocolectomy-2004 Cystourethroscopy History of tonsillectomy and adenoidectomy Family History Father Urinary problem Lithiasis Family/Other Urinary problem Paternal ancestry-Lithiasis Social History Smoking Status: Never smoker Alcohol Intake Frequency: holiday/special occasion only Substance Use: does not use Exam Narrative Narrative: Narrative: General Limitations: no limitations General appearance: Present alert and in no apparent distress Head Head: Present atraumatic and normocephalic ENT ENT: Present normal oropharynx and mucous membranes moist Chest Chest: Present normal inspection and symmetric chest wall rise Respiratory Respiratory: Present normal lung sounds bilaterally; Absent respiratory distress, accessory muscle use or decreased breath sounds Cardiovascular Cardiovascular: Present regular rate, normal rhythm, +S1, +S2 and other (2+ B/L radial pulses); Absent systolic murmur or diastolic murmur Adbominal Abdominal: Present soft, normal bowel sounds and other (ostomy in place); Absent distention or tenderness Extremities Extremities: Absent pedal edema Neurological Neurological: Present alert and oriented X3 Psychiatric Psychiatric: Present normal affect Skin Skin: Present warm (WNL) and dry Course Vital Signs Vital signs: Vital Signs Temperature 97.8 F 06/05/21 16:50 Pulse Rate 57 L 06/05/21 16:50 Respiratory Rate 16 06/05/21 16:50 Blood Pressure 118/81 06/05/21 16:50 Pulse Oximetry (%) 99 06/05/21 16:50 Temperature 98.5 F 06/05/21 22:23 Pulse Rate 71 06/05/21 22:23 Respiratory Rate 22 06/05/21 22:23 Blood Pressure 143/73 06/05/21 22:23 Pulse Oximetry (%) 95 06/05/21 22:23 MDM MDM Narrative Medical decision making narrative: Narrative: 80 yo M w/ h/o prostate CA, colon CA s/p ostomy, PE, p/w epigastric/periumbilical abd pain. DDx - ACS, AAA, mesenteric ischemia, cholecystitis, pancreatitis, peritonitis, neoplastic process Pt presented clinically stable, in NAD. His EKG showed no ischemia, troponin was negative and clinically I felt that ACS was unlikely. I proceeded to check labs and CT while Tx'ing w/ IVF, morphine and zofran. CBC showed no anemia or leukocytosis. Lactate was WNL. BMP was unremarkable. Lipase WNL. US was not indicated w/ no RUQ TTP and negative [place]. CT demonstrated partial SBO w/ no evidence of vascular pathology, new neoplastic process, or other serious findings. I d/w Dr Velasco w/ surgery who agreed to admit the pt. He asked that I place orders for scheduled reglan, a PRN antiemetic (I chose phenergan to avoid zofran-reglan combination), IVF, NPO and he would take the pt on his service. Pt was agreeable to this plan. Lab Data Lab results reviewed: Yes I reviewed the patient's lab results. Result diagrams: 06/05/21 18:06 Labs: Lab Results 06/05/21 06/05/21 06/05/21 Range/Units 17:45 18:02 18:06 WBC 10.4 (4.5-11.0) K/mcL RBC 4.21 L (4.63-6.08) M/mcL Hgb 13.7 (13.7-17.5) g/dL Hct 40.5 (40.1-51.0) % POC Hct (41-55) MCV 96.2 (80.0-100.0) fL MCH 32.5 (26.0-34.0) pg MCHC 33.8 (31.0-36.0) g/dL RDW 12.6 (11.5-14.5) % Plt Count 201 (140-440) K/mcL MPV 10.6 H (7.4-10.4) fL Neut % (Auto) 74.9 (38.0-78.0) % Lymph % (Auto) 17.0 (15.5-49.0) % Taylor % (Auto) 6.5 (1.0-12.0) % Eos % (Auto) 1.3 (0.0-7.0) % Baso % (Auto) 0.3 (0.0-2.0) % Lymph # (Auto) 1.77 (1.50-4.80) K/mcL Taylor # (Auto) 0.68 (0.10-0.90) K/mcL Eos # (Auto) 0.14 (0.00-0.70) K/mcL Baso # (Auto) 0.03 (0.00-0.30) K/mcL Absolute Neutrophils 7.79 (1.80-8.00) K/mcL POC PT 18.4 H (11.9-14.5) POC INR 1.6 H (0.8-1.2) VBG Lactic Acid (0.5-2.0) mmol/L POC Sodium (133-145) POC Potassium (3.3-5.1) POC Chloride (96-108) POC Total CO2 (22-30) POC BUN (6-20) POC Creatinine (0.6-1.2) POC Glucose (70-105) POC WB Ioniz Calcium (1.16-1.32) Total Bilirubin (0.1-1.0) mg/dL Direct Bilirubin (0-0.3) mg/dL AST (<40) U/L ALT (<40) U/L Alkaline Phosphatase (39-117) U/L Total Protein (5.9-8.4) gm/dL Albumin (3.2-5.2) gm/dL Globulin (2.2-3.7) gm/dL Lipase (7-60) U/L Urine Color Yellow Urine Appearance Cloudy A (Clear) Urine pH 8.0 (5.0-9.0) Ur Specific [place] 1.023 (1.000-1.035) Urine Protein 30 A (Negative) mg/dL Urine Glucose (UA) Negative (Negative) mg/dL Urine Ketones 20 A (Negative) mg/dL Urine Occult Blood Negative (Negative) mg/dL Urine Nitrate Negative (Negative) Urine Bilirubin Negative (Negative) mg/dL Urine Urobilinogen Negative mg/dL Ur Leukocyte Esterase Negative (Negative) /uL Urine RBC < 1 (0-3) /hpf Urine WBC 0 (0-4) /hpf Ur Squamous Epith Cells 0 (0-4) /hpf Amorphous Crystals Few A (None) /hpf Urine Bacteria None (0) /hpf Hyaline Casts 1 (0-2) /lph Urine Mucus Few A (None) /hpf Ur Culture Indicated? No POC Troponin I 06/05/21 06/05/21 06/05/21 Range/Units 18:06 18:06 18:06 WBC (4.5-11.0) K/mcL RBC (4.63-6.08) M/mcL Hgb (13.7-17.5) g/dL Hct (40.1-51.0) % POC Hct 40.0 L (41-55) MCV (80.0-100.0) fL MCH (26.0-34.0) pg MCHC (31.0-36.0) g/dL RDW (11.5-14.5) % Plt Count (140-440) K/mcL MPV (7.4-10.4) fL Neut % (Auto) (38.0-78.0) % Lymph % (Auto) (15.5-49.0) % Taylor % (Auto) (1.0-12.0) % Eos % (Auto) (0.0-7.0) % Baso % (Auto) (0.0-2.0) % Lymph # (Auto) (1.50-4.80) K/mcL Taylor # (Auto) (0.10-0.90) K/mcL Eos # (Auto) (0.00-0.70) K/mcL Baso # (Auto) (0.00-0.30) K/mcL Absolute Neutrophils (1.80-8.00) K/mcL POC PT (11.9-14.5) POC INR (0.8-1.2) VBG Lactic Acid 0.9 (0.5-2.0) mmol/L POC Sodium 141 (133-145) POC Potassium 4.1 (3.3-5.1) POC Chloride 106 (96-108) POC Total CO2 27.0 (22-30) POC BUN 28 H (6-20) POC Creatinine 1.2 (0.6-1.2) POC Glucose 94 (70-105) POC WB Ioniz Calcium 1.16 (1.16-1.32) Total Bilirubin 0.3 (0.1-1.0) mg/dL Direct Bilirubin < 0.2 (0-0.3) mg/dL AST 22 (<40) U/L ALT 21 (<40) U/L Alkaline Phosphatase 71 (39-117) U/L Total Protein 7.0 (5.9-8.4) gm/dL Albumin 4.1 (3.2-5.2) gm/dL Globulin 2.9 (2.2-3.7) gm/dL Lipase 31 (7-60) U/L Urine Color Urine Appearance (Clear) Urine pH (5.0-9.0) Ur Specific [place] (1.000-1.035) Urine Protein (Negative) mg/dL Urine Glucose (UA) (Negative) mg/dL Urine Ketones (Negative) mg/dL Urine Occult Blood (Negative) mg/dL Urine Nitrate (Negative) Urine Bilirubin (Negative) mg/dL Urine Urobilinogen mg/dL Ur Leukocyte Esterase (Negative) /uL Urine RBC (0-3) /hpf Urine WBC (0-4) /hpf Ur Squamous Epith Cells (0-4) /hpf Amorphous Crystals (None) /hpf Urine Bacteria (0) /hpf Hyaline Casts (0-2) /lph Urine Mucus (None) /hpf Ur Culture Indicated? POC Troponin I 06/05/21 Range/Units 18:15 WBC (4.5-11.0) K/mcL RBC (4.63-6.08) M/mcL Hgb (13.7-17.5) g/dL Hct (40.1-51.0) % POC Hct (41-55) MCV (80.0-100.0) fL MCH (26.0-34.0) pg MCHC (31.0-36.0) g/dL RDW (11.5-14.5) % Plt Count (140-440) K/mcL MPV (7.4-10.4) fL Neut % (Auto) (38.0-78.0) % Lymph % (Auto) (15.5-49.0) % Taylor % (Auto) (1.0-12.0) % Eos % (Auto) (0.0-7.0) % Baso % (Auto) (0.0-2.0) % Lymph # (Auto) (1.50-4.80) K/mcL Taylor # (Auto) (0.10-0.90) K/mcL Eos # (Auto) (0.00-0.70) K/mcL Baso # (Auto) (0.00-0.30) K/mcL Absolute Neutrophils (1.80-8.00) K/mcL POC PT (11.9-14.5) POC INR (0.8-1.2) VBG Lactic Acid (0.5-2.0) mmol/L POC Sodium (133-145) POC Potassium (3.3-5.1) POC Chloride (96-108) POC Total CO2 (22-30) POC BUN (6-20) POC Creatinine (0.6-1.2) POC Glucose (70-105) POC WB Ioniz Calcium (1.16-1.32) Total Bilirubin (0.1-1.0) mg/dL Direct Bilirubin (0-0.3) mg/dL AST (<40) U/L ALT (<40) U/L Alkaline Phosphatase (39-117) U/L Total Protein (5.9-8.4) gm/dL Albumin (3.2-5.2) gm/dL Globulin (2.2-3.7) gm/dL Lipase (7-60) U/L Urine Color Urine Appearance (Clear) Urine pH (5.0-9.0) Ur Specific [place] (1.000-1.035) Urine Protein (Negative) mg/dL Urine Glucose (UA) (Negative) mg/dL Urine Ketones (Negative) mg/dL Urine Occult Blood (Negative) mg/dL Urine Nitrate (Negative) Urine Bilirubin (Negative) mg/dL Urine Urobilinogen mg/dL Ur Leukocyte Esterase (Negative) /uL Urine RBC (0-3) /hpf Urine WBC (0-4) /hpf Ur Squamous Epith Cells (0-4) /hpf Amorphous Crystals (None) /hpf Urine Bacteria (0) /hpf Hyaline Casts (0-2) /lph Urine Mucus (None) /hpf Ur Culture Indicated? POC Troponin I 0 EKG Data EKG #1: EKG attestation: Yes I reviewed and interpreted this EKG. and Yes There are no EKG findings of acute coronary syndrome EKG results narrative: Sinus rate of 67 [place] 225 Normal QRS, QT/QTc intervals No STEMI First degree AV block Similar to previous EKG Discharge Plan Patient/Caregiver Discharge Instructions Pt seen by ROD PLACER/PA only: No Clinical Impression: Abdominal pain, Partial small bowel obstruction Patient Disposition: Xfer As Inpt ([facility]) Discharge Date/Time: 06/05/21 22:20 Discharge Comment: to room 126 via [facility]air
[2021-06-05 18:05] LABS: POC INR 1.6 (0.8-1.2); POC Pro Time 18.4 (11.9-14.5)
[2021-06-05 18:17] LABS: POC Calcium, Ionized 1.16 (1.16-1.32); POC Creatinine 1.2 (0.6-1.2); POC Potassium 4.1 (3.3-5.1)
[2021-06-05 19:06] LABS: Basophils # (Auto) 0.03 K/mcL (0.00-0.30); Basophils % (Auto) 0.3 % (0.0-2.0); Eosinophils # (Auto) 0.14 K/mcL (0.00-0.70); Eosinophils % (Auto) 1.3 % (0.0-7.0); Hematocrit 40.5 % (40.1-51.0); Hemoglobin 13.7 g/dL (13.7-17.5); Lymphocytes # (Auto) 1.77 K/mcL (1.50-4.80); Mean Cell Volume 96.2 fL (80.0-100.0); Mean Corpuscular HGB Conc 33.8 g/dL (31.0-36.0); Mean Platelet Volume 10.6 fL (7.4-10.4); Monocytes # (Auto) 0.68 K/mcL (0.10-0.90); Monocytes % (Auto) 6.5 % (1.0-12.0); Neutrophils % (Auto) 74.9 % (38.0-78.0); Platelet Count 201 K/mcL (140-440); RBC 4.21 M/mcL (4.63-6.08); Red Cell Distribution Width 12.6 % (11.5-14.5); WBC 10.4 K/mcL (4.5-11.0)
--- NOTE | 2021-06-05 19:18 | Cat Scan Report ---
CLINICAL INFORMATION: Epigastric pain COMPARISON: Abdomen and pelvic CT from September 2019 and 11/09/2020 TECHNIQUE: Following enteric contrast, 80 cc of Isovue-370 were injected intravenously, and 60 seconds later, 0.625 mm helical slices were obtained from the mid heart through the subtrochanteric regions. Following reconstruction, 2.5 mm sagittal, coronal and axial reformatted images were processed and reviewed at bone, lung and soft tissue windows. Five minutes later, 0.625 mm helical slices were obtained from the mid heart through the kidneys and viewed at soft tissue windows.The exam was performed using radiation dose optimization techniques including, but not limited to, automated exposure control, adjustment of the mA and/or kV according to patient size and use of iterative reconstruction technique. FINDINGS: The lung bases are clear. No effusions. The visualized heart is grossly normal. Abdominal images show the gallbladder and bile ducts, liver, adrenal glands, spleen and pancreas are normal in size, configuration and attenuation without focal lesion. Left nephrectomy changes noted. There is compensatory hypertrophy of the right kidney which spans 14 cm in length. Scattered small renal cysts are stable. Right upper collecting system and ureter are normal. The abdominal aorta is mildly tortuous with scattered atherosclerotic plaque. The celiac, SMA, JEFE, right renal and iliac arteries contain plaque, but no stenoses. There is no free air or free fluid. Pelvic images show normal urinary bladder, prostate and seminal vesicles. Abdominal perineal resection of the rectosigmoid colon with the proximal sigmoid extended to a colostomy in the left lower quadrant again seen. 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 There are a few loops of small bowel tethered to this region, but this does not appear to result in obstruction. The stomach, duodenum jejunum and ileum are moderately dilated to a transition point in the right lower quadrant region. The distal ileum is decompressed. Findings suggestive of partial small bowel obstruction due to adhesions or stricture in this region. The remaining colon is unremarkable.. A cluster of 4-5 moderately enlarged right inguinal lymph nodes, ranging up to 21 mm, has increased considerably since the previous exam. This could potentially be metastatic-suggest ultrasound-guided biopsy. Mildly enlarged lymph nodes in the left inguinal region also increased. There is, however, no definite adenopathy in the intra-abdominal or pelvic region. Incidentally, there is a 5.5 x 1.7 cm elongated thick-walled tubular structure in the region of the left mid ureter which is unchanged from previous examination. This likely represents an unresected segment of left ureter which is sealed proximally and distally. It is unchanged. There is no intra-abdominal or pelvic adenopathy. Bone windows show no osseous abnormality IMPRESSION: 1. Abdominal perineal resection of the rectosigmoid with colostomy of the distal descending colon in the left lower quadrant. 2. Partial small bowel obstruction of the distal ileum in the right lower quadrant due to adhesions or stricture. No evidence of third spacing or perforation. 3. 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 A few loops of small bowel are tethered to this region, but this does not represent a point of obstruction. 4. Cluster of moderately large right inguinal lymph node has increased in density and number. These could potentially be metastatic. Suggest ultrasound-guided biopsy. 5. Status post left nephrectomy changes. A 6 x 1.8 cm segment of mid left ureter has been retained and contains a small amount of fluid. This demonstrates long-term stability and is of doubtful clinical significance. Interpreted and Authenticated by: Matt Marte 06/05/21
[2021-06-05 19:36] LABS: ALT/SGPT 21 U/L (<40); AST/SGOT 22 U/L (<40); Albumin 4.1 gm/dL (3.2-5.2); Alkaline Phosphatase 71 U/L (39-117); Bilirubin,Direct < 0.2 mg/dL (0-0.3); Bilirubin,Total 0.3 mg/dL (0.1-1.0); Globulin 2.9 gm/dL (2.2-3.7)
[2021-06-05 19:42] LABS: Appearance,Urine CLOUDY (Clear); Bilirubin,Urine Negative (Negative); Color,Urine YELLOW; Culture Indicated,Urine No; Glucose,Urine (UA) Negative (Negative); Ketones,Urine 20 mg/dL (Negative); Leukocyte Esterase,Urine Negative /uL (Negative); Mucus,Urine FEW /hpf; Nitrate,Urine Negative (Negative); Protein,Urine 30 mg/dL (Negative); Specific Gravity,Urine 1.023 (1.000-1.035); Urine Amorphous Crystals FEW /hpf; Urine Blood Negative (Negative); Urine Hyaline Cast 1 /lph (0-2); Urine RBC < 1 /hpf (0-3); Urine Squamous Epithelial Cell 0 /hpf (0-4); Urine WBC 0 /hpf (0-4); Urobilinogen,Urine Negative
[2021-06-05] MEDS ORDERED: PROMETHAZINE 25 MG/ML VIAL IV PRN (20:15)
[2021-06-05] MEDS: KETOROLAC 30 MG/ML VIAL IV PRN (21:57)
[2021-06-05] MEDS: DEXTROSE 5%-NS 1,000 ML IV SCH (22:30)
[2021-06-05] MEDS: METOCLOPRAMIDE 10 MG/2 ML VIAL IV SCH (23:51)
[2021-06-06] MEDS: KETOROLAC 30 MG/ML VIAL IV PRN (04:04)
[2021-06-06] MEDS: METOCLOPRAMIDE 10 MG/2 ML VIAL IV SCH ×4 (05:51→23:54)
[2021-06-06] MEDS: DEXTROSE 5%-NS 1,000 ML IV SCH ×5 (05:51→23:56)
[2021-06-06] MEDS ORDERED: KETOROLAC 15 MG/ML VIAL IV PRN (07:15)
--- NOTE | 2021-06-06 07:55 | EKG ---
[facility] Test Date: 2021-06-05 Pat Name: Nelson Arizmendi Department: ED Room: Gender: Male Reel Hooker: KAY : 1940 Requested By: Sebastian Ho Order Number: [id number] Reading MD: Matt Valadez M.D. Measurements Intervals [place] Rate: 67 P: 64 SD: 225 QRS: 34 QRSD: 94 T: 65 QT: 414 QTc: 437 Interpretive Statements Sinus rhythm Atrial premature complex Prolonged SD interval Probable anterior infarct, old Electronically Signed On 06-06-2021 7:55:21 PDT by Matt Valadez M.D. /store/M0/[id number]
--- NOTE | 2021-06-06 14:06 | XRay Report ---
HISTORY: Follow-up small bowel obstruction with abdominal pain, prior partial colectomy for colon cancer and prior nephrectomy FINDINGS: There is air throughout the small intestine and remaining large bowel. There are couple loops of borderline small bowel in the left lower quadrant which measure up to 3.6 cm. This is unchanged from the prior CT done on 06/05/21. These contain a couple small air-fluid levels. No free intra-abdominal air is present. There is no apparent soft tissue mass. There is contrast in the urinary bladder following yesterday's CT scan. The bladder is trabeculated there are small diverticula. IMPRESSION: Incomplete distal small bowel obstruction with little change Interpreted and Authenticated by: Anoop Valadez 06/06/21
--- NOTE | 2021-06-06 17:26 | General Surg History&Physical ---
HPI History of Present Illness Patient information: Note initiated : 06/06/21 at 5:11 pm Service Date, if different from initiated Date: [] Patient: Nelson Arizmendi a 80 y/o M admitted on 06/05/21 for abdominal pain. Chief Complaint: [] Chief complaint: Abdominal pain with nausea and vomiting History of present illness: Mr. Arizmnedi is a 80 year old M admitted with abdominal pain nausea and vomiting. The patient states that he had acute onset of mid abdominal pain followed by diffuse abdominal pain while working in his yard on yesterday. The pain increased in severity and prompted him to come to the emergency room. In the emergency room it was noted that he had fecal matter in his stoma pouch. He also has some gas. Abdominal x-rays showed dilated loops of small bowel and colon. CT shows dilated loops of small bowel and colon with questionable transition site in the distal small bowel near the ileocecal valve however he had significant stool and gas in his colon extending to his stoma. Patient has been admitted. He did a second irrigation of his stoma with minimal results however the results were not witnessed. He is somewhat perturbed because I did not see him as soon as he was admitted. I explained Situation and the fact that I was following his x-rays and labs online. Clinically he is stable and in no acute distress. He is resistant to some medications and I will not try to encourage him to take them. I explained to him the plan and I will proceed with the plan as he cooperates. The patient has a history of advanced rectal cancer which led to the need for chemoradiation followed by abdominal perineal resection. He has a permanent colostomy. He is not on any adjuvant chemotherapy for that at this time. He also has a history of prostate cancer which he states he is treating with TIBETAN remedies. I did not discuss this with him. Constitutional Constitutional: Present excessive sweating, fatigue, lethargy, malaise and weight loss (32 pounds) Cardiovascular Cardiovascular: Absent chest pain with activity, claudication, dyspnea on exertion, rapid heart rate or syncope Respiratory Respiratory: Absent cough or wheezing Gastrointestinal Gastrointestinal: Present abdominal pain, belching, change in bowel habits, constipation, cramping, heartburn, nausea and vomiting; Absent hematochezia Musculoskeletal Musculoskeletal: Absent muscle weakness or myalgias Neurological Neurological: Absent abnormal hearing, dizziness, memory loss or tremor(s) Psychiatric Psychiatric: Present abnormal sleep pattern, behavioral changes and irritability Hematologic/Lymphatic Hematologic/Lymphatic: Absent easy bleeding, easy bruising or lymphadenopathy Allergic/Immunologic Allergic/Immunologic: Absent tongue swelling, throat swelling, uticaria or wheezing PFSH PFSH All Active Problems Abdominal pain (Acute) Partial small bowel obstruction (Acute) Erectile dysfunction (Chronic) Dry eye syndrome (Chronic) Depression (Chronic) Back pain (Chronic) Right acetabular fracture (Chronic) Concussion (Chronic) Poor venous access (Chronic) History of colon cancer (Chronic) Chronic urinary tract infection (Chronic) Vertigo (Chronic) Toe injury (Chronic) Status post nephrectomy (Chronic) Chronic pyelonephritis (Chronic) correction current use of anticoagulant (Chronic) Severe depression (Chronic) Anxiety (Chronic) Seborrheic keratosis (Chronic) Nuclear senile cataract (Chronic) Chronic allergic conjunctivitis (Chronic) Tear film insufficiency (Chronic) Disequilibrium (Chronic) Bronchospasm (Chronic) Hydronephrosis (Chronic) Chest pain (Chronic) 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 (Chronic) Dermatochalasis (Chronic) Elevated PSA (Chronic) Sensorineural hearing loss (SNHL), bilateral (Chronic) Impotence (Chronic) Vitamin B12 deficiency anemia (Chronic) Anorexia (Chronic) Carcinoma of colon (Chronic) Dermatitis (Chronic) Rosacea (Chronic) Chronic post-traumatic stress disorder (Chronic) Tremor (Chronic) Port-A-Cath in place (Chronic) Deep vein thrombosis of lower extremity (Chronic) Thrombophilia (Chronic) Dysphagia (Chronic) Concussion with loss of consciousness (Chronic) Urinary tract infection (Chronic) Complicated urinary tract infection (Chronic) Rectal cancer (Chronic) Pseudomonas infection (Chronic) Hydroureteronephrosis (Chronic) Gross hematuria (Chronic) Symptom of bladder outlet obstruction (Chronic) Hypogonadism (Chronic) Mumps orchitis (Chronic) Thrombophlebitis (Chronic) Numbness (Chronic) Edema of left lower extremity (Chronic) History of bladder infections (Chronic) History of nephrectomy, left (Chronic) Prostate cancer (Chronic) History of bladder stone (Chronic) Chronic pelvic pain in male (Chronic) Lumbar spondylosis (Chronic) Radiculopathy (Chronic) Peripheral neuropathy (Chronic) Facet arthropathy (Chronic) Medical marijuana use (Chronic) Chronic pain (Chronic) Other low back pain (Chronic) Shortness of breath (Acute) Upper respiratory infection, viral (Acute) Bladder pain (Acute) Chronic pelvic pain in male (Acute) Medical History Anorexia Anxiety Back pain Bronchospasm Carcinoma of colon Chest pain Chronic allergic conjunctivitis Chronic pain Chronic pelvic pain in male Chronic post-traumatic stress disorder Chronic pyelonephritis Chronic urinary tract infection Complicated urinary tract infection Concussion Concussion with loss of consciousness Deep vein thrombosis of lower extremity Depression Dermatitis Dermatochalasis Disequilibrium Dry eye syndrome Dysphagia Edema of left lower extremity Elevated PSA Erectile dysfunction Facet arthropathy Gastroesophageal reflux disease with stricture Gross hematuria History of bladder infections History of bladder stone History of colon cancer Hydronephrosis Hydroureteronephrosis Left Hypogonadism Impotence correction current use of anticoagulant Lumbar spondylosis Medical marijuana use Mumps orchitis Nuclear senile cataract Numbness Bilateral upper thighs Other low back pain Peripheral neuropathy Poor venous access Port-A-Cath in place Prostate cancer Pseudomonas infection Pulmonary embolism and infarction Radiculopathy Rectal cancer Right acetabular fracture Rosacea Seborrheic keratosis Sensorineural hearing loss (SNHL), bilateral Severe depression Status post nephrectomy Symptom of bladder outlet obstruction Tear film insufficiency Thrombophilia Thrombophlebitis Left Toe injury 08/2015-Dropped piece of drywall on toe Tremor Urinary tract infection Venous thrombosis and embolism Vertigo Vitamin B12 deficiency anemia Surgical History History of back surgery (~1996) History of biopsy (~2005) History of creation of ostomy colostomy History of cystoscopy History of nephrectomy, left History of nephrostomy Percutaneous History of removal of Port-a-Cath 10/12/2017 History of surgery proctocolectomy-2004 Cystourethroscopy History of tonsillectomy and adenoidectomy Family History Father Urinary problem Lithiasis Family/Other Urinary problem Paternal ancestry-Lithiasis Social History marital status: education level: college service: Yes occupational status: retired smoking status: Never smoker alcohol intake frequency: holiday/special occasion only substance use type: does not use MEDS/ALLERGIES Home Medications and Allergies Home Medications Medication Instructions Recorded Confirmed Type warfarin 5 mg tablet 5 mg PO SUTUTHSA@1400 05/27/15 06/05/21 History cyanocobalamin (vitamin B-12) 1,000 mcg IM .[id number] ml 10/20/15 06/05/21 History 1,000 mcg/mL injection solution propranolol 20 mg tablet 20 mg PO BID tab 10/20/15 06/05/21 History turmeric root extract 500 mg 10/20/15 06/05/21 History capsule zolpidem 10 mg tablet 10 mg PO QHS PRN tab 10/20/15 06/05/21 History cholecalciferol (vitamin D3) 125 5,000 unit PO BID cap 10/08/17 06/05/21 History mcg (5,000 unit) capsule magnesium oxide 500 mg capsule 500 mg PO BID cap 10/08/17 06/05/21 History dextroamphetamine-amphetamine 10 10 mg PO DAILY 09/11/19 06/05/21 History mg tablet lorazepam 2 mg tablet 2 mg PO BIDP PRN 09/11/19 06/05/21 History docusate sodium 250 mg capsule 500 mg PO BID cap 11/01/20 06/05/21 History fosfomycin tromethamine 3 gram 1 packet PO ONCE 11/01/20 06/05/21 History oral packet polyethylene glycol 3350 17 17 g PO QDAY PRN 11/01/20 06/05/21 History gram/dose oral powder ubidecarenone-omega 3-vit E 25 1 cap PO QDAY 11/02/20 06/05/21 History mg-150 (90-60) mg-200 unit capsule (Co V-[id number] E-Fish Oil) Medical Marijuana INHALATION PRN PRN 12/09/20 06/02/21 History hydrocodone 5 mg-acetaminophen 325 1 tab PO QHS PRN #30 tab 04/26/21 06/05/21 Rx mg tablet oxycodone 5 mg tablet 5 mg PO QHS PRN #30 tab 06/02/21 06/05/21 Rx phenazopyridine 100 mg tablet 100 mg PO PRN PRN 06/05/21 06/05/21 History (Pyridium) Allergies Allergy/AdvReac Type Severity Reaction Status Date / Time gentamicin [Gentamicin] Allergy Severe Other Verified 06/05/21 16:55 Iodinated Contrast Media Allergy Severe Other Verified 06/05/21 16:55 lactase [From Dairy Aid] Allergy Intermediate Flatulence Verified 06/05/21 16:55 midazolam [From Versed] Allergy Intermediate Other Verified 06/05/21 16:55 Penicillins Allergy Intermediate Swelling Verified 06/05/21 16:55 ciprofloxacin Allergy Unknown Verified 06/05/21 16:55 omeprazole Allergy Unknown Verified 06/05/21 16:55 penicillin G Allergy Unknown Verified 06/05/21 16:55 sulfamethoxazole Allergy Unknown Verified 06/05/21 16:55 [From Bactrim] trimethoprim [From Bactrim] Allergy Unknown Verified 06/05/21 16:55 Physical Examination Vital Signs Vital signs: Temp Pulse Resp BP Pulse Ox 98.3 F 58 L 20 101/62 94 06/06/21 12:00 06/06/21 12:00 06/06/21 12:00 06/06/21 12:00 06/06/21 12:00 General physical appearance General physical exam: well nourished, no distress, moderate pain and chronically ill Eyes Eye exam: PERRL and normal ocular movement ENT ENT exam: normal mucosa and decreased hearing Head Head exam IM: Present atraumatic, normal inspection and normocephalic Neck Neck exam: no masses, no bruits, trachea midline, no lymphadenopathy and no venous distension Cardiovascular Cardiovascular exam IM: Present normal rate and rhythm, RRR, +S1 and +S2; Absent JVD or tachycardia Respiratory Respiratory exam: normal expansion, normal respiratory effort and clear to auscultation Abdomen Abdomen: Present soft, tender (Mild diffuse tenderness), bowel sounds (NABS), wound (Functioning stoma left lower quadrant) and distended (Very mild abdominal distention); Absent organomegaly (No palpable organomegaly) Rectum Rectum: Present other (Absent due to abdominal perineal resection) Integumentary Integumentary: Present no rash, no growths and no abnormal pigmentation Neurologic Neurologic: Present normal coordination and normal sensation Musculoskeletal Musculoskeletal: Present normal gait and normal posture Psychiatric Psychiatric: Present oriented to time, oriented to person, oriented to place, speech is normal and memory intact Results Labs Result diagrams: 06/05/21 18:06 Labs: Abnormal lab results 06/05/21 06/05/21 06/05/21 Range/Units 17:45 18:02 18:06 RBC 4.21 L (4.63-6.08) M/mcL POC Hct (41-55) MPV 10.6 H (7.4-10.4) fL POC PT 18.4 H (11.9-14.5) POC INR 1.6 H (0.8-1.2) POC BUN (6-20) Urine Appearance Cloudy A (Clear) Urine Protein 30 A (Negative) mg/dL Urine Ketones 20 A (Negative) mg/dL Amorphous Crystals Few A (None) /hpf Urine Mucus Few A (None) /hpf 06/05/21 Range/Units 18:06 RBC (4.63-6.08) M/mcL POC Hct 40.0 L (41-55) MPV (7.4-10.4) fL POC PT (11.9-14.5) POC INR (0.8-1.2) POC BUN 28 H (6-20) Urine Appearance (Clear) Urine Protein (Negative) mg/dL Urine Ketones (Negative) mg/dL Amorphous Crystals (None) /hpf Urine Mucus (None) /hpf Diabetes panel 06/05/21 Range/Units 18:06 AST 22 (<40) U/L ALT 21 (<40) U/L Alkaline Phosphatase 71 (39-117) U/L Total Protein 7.0 (5.9-8.4) gm/dL Albumin 4.1 (3.2-5.2) gm/dL Calcium panel 06/05/21 Range/Units 18:06 Albumin 4.1 (3.2-5.2) gm/dL Adrenal panel 06/05/21 Range/Units 18:06 Total Bilirubin 0.3 (0.1-1.0) mg/dL AST 22 (<40) U/L ALT 21 (<40) U/L Alkaline Phosphatase 71 (39-117) U/L Total Protein 7.0 (5.9-8.4) gm/dL Albumin 4.1 (3.2-5.2) gm/dL All other labs normal. A/P Assessment and plan (1) Partial small bowel obstruction: Status: Acute (2) Abdominal pain: Status: Acute (3) Status post nephrectomy: Status: Chronic (4) correction current use of anticoagulant: Status: Chronic (5) Severe depression: Status: Chronic (6) Sensorineural hearing loss (SNHL), bilateral: Status: Chronic (7) Chronic post-traumatic stress disorder: Status: Chronic Plan Clear liquid diet as tolerated MiraLAX every 2 hours x8 doses Metoclopramide 10 mg IV every 6 hours Gastrografin small bowel follow-through in the morning OFIRMEV 1 g IV every 6 hours Pantoprazole 40 mg IV every 12 hours Time Spent With Patient Time: Total time spent is greater than 50% in coordination of care (as documented) at patient's floor/unit and/or counseling patient:
[2021-06-06] MEDS: ACETAMINOPHEN 1,000 MG/100 ML BAG IV SCH ×2 (19:26→23:55)
[2021-06-06] MEDS ORDERED: ACETAMINOPHEN 1,000 MG/100 ML BAG IV ONE (19:32)
[2021-06-07] MEDS: METOCLOPRAMIDE 10 MG/2 ML VIAL IV SCH ×2 (06:01→12:12)
[2021-06-07] MEDS: ACETAMINOPHEN 1,000 MG/100 ML BAG IV SCH ×2 (06:02→12:13)
[2021-06-07] MEDS: DEXTROSE 5%-NS 1,000 ML IV SCH (06:35)
--- NOTE | 2021-06-07 08:52 | XRay Report ---
HISTORY: Follow-up partial bowel obstruction FINDINGS: Supine and erect views were obtained. There are multiple air-fluid levels in nondilated large and small bowel and nondistended stomach. There is less air in the small intestine and more air in the large bowel today than there had been on 06/06/21. No free intra-abdominal air is present. There is no apparent mass. There is a ring shaped structure in the left mid abdomen which is probably an ostomy. IMPRESSION: Ileus pattern Interpreted and Authenticated by: Anoop Valadez 06/07/21
--- NOTE | 2021-06-07 13:36 | Discharge Summary ---
Discharge Provider Provider Patient information: Note initiated : 06/07/21 at 1:31 pm Service Date, if different from initiated Date: [] Patient: Nelson Arizmendi 80 y/o M admitted on 06/05/21 for abdominal pain. Chief Complaint: [] Date of admission: 06/05/21 22:20 Discharge date: 06/07/21 Primary care physician: Fina Younger Admitting clinician: Dipak Velasco Attending physician on admission: Dipak Velasco Consults: 06/05/21 Consult to Physician [CONS] Stat Comment: Consulting Provider: Dipak Velasco Reason For Exam: Physician to Consult Attending physician on discharge: Dipak Velasco Discharging clinician: Dipak Velasco COURSE Hospital Course Hospital course: 79-year-old male admitted with history of acute onset of abdominal pain with nausea and vomiting. He was seen in the emergency room where evaluation suggested partial bowel obstruction with a transition point at the terminal ile um. The patient has a history of rectal cancer and is status post chemoradiation followed by abdominal perineal resection. He has not had similar difficulty in the past. Patient did have some gas in his colon extending to his stoma. He was placed on bowel rest and was given Reglan. He gradually improved and is now having regular bowel movements and passing flatus. Abdominal x-rays shows decreasing caliber of small bowel and colon with significant reduction in colon gas. He has gas extending to the stoma. He is clinically stable and is discharged home. Discharge diagnosis: Partial small bowel obstruction Secondary discharge diagnosis: History of colorectal cancer Depression with anxiety Posttraumatic stress disorder Reason for admission: Small bowel obstruction Procedures: None Pertinent studies/significant findings: None Complications: None Time Spent with Patient Time attestation: Total time spent providing and/or coordinating discharge services: Physical Examination Vital Signs Vital signs: Temp Pulse Resp BP Pulse Ox 97.4 F 64 14 105/61 95 06/07/21 12:00 06/07/21 12:00 06/07/21 12:00 06/07/21 12:00 06/07/21 12:00 Discharge Plan Patient/Caregiver Discharge Instructions Activity: increase activity as tolerated Diet: Regular Diet Prescriptions: Continued cyanocobalamin (vitamin B-12) 1,000 mcg/mL solution 1,000 mcg IM .[id number] 0RF propranolol 20 mg tablet 20 mg PO BID 0RF zolpidem 10 mg tablet 10 mg PO QHS PRN (Reason: Sleep) 0RF (DME) turmeric root extract 500 mg capsule 500 mg .ROUTE .MEDSUPPLY 0RF Rx Instructions: QDAY cholecalciferol (vitamin D3) 5,000 unit capsule 5,000 unit PO BID 0RF fosfomycin tromethamine 3 gram packet 1 packet PO ONCE 0RF docusate sodium 250 mg capsule 500 mg PO BID 0RF polyethylene glycol 3350 17 gram/dose powder 17 g PO QDAY PRN (Reason: Constipation) 0RF magnesium oxide 500 mg capsule 500 mg PO BID 0RF Medical Marijuana inhalation PRN PRN (Reason: cancer pain and anxiety) 0RF Rx Instructions: Medical Marijuana hydrocodone-acetaminophen 5-325 mg tablet 1 tab PO QHS PRN (Reason: pain) Qty: 30 0RF oxycodone 5 mg tablet 5 mg PO QHS PRN (Reason: pain) Qty: 30 0RF warfarin 5 MG tablet 5 mg PO SUTUTHSA@1400 0RF Rx Instructions: everyday except for sun,sun, sunday dextroamphetamine-amphetamine 10 mg Tablet 10 mg PO DAILY 0RF lorazepam 2 mg Tablet 2 mg PO BIDP PRN (Reason: Anxiety) 0RF phenazopyridine [Pyridium] 100 mg tablet 100 mg PO PRN PRN (Reason: pain) 0RF Co [id number] E-Fish Oil 25-150-200 mg-mg-unit capsule 1 cap PO QDAY 0RF Follow Up Plan Follow up with: Fina Younger ARNP [Primary Care Provider] - Patient Disposition: Home, Self-Care Plan of Treatment: MiraLAX 17 g in 8 ounces of liquid 2-3 times daily as needed Prognosis: Good Rehab Potential: Good I certify that the patient requires SNF services: No Overall status at discharge: patient is progressing back to baseline Discharge Orders: Discharge Order (Routine); Ordered 06/07/21 Ordered By: Dipak Velasco Pending Pending Pending: Diet Full Liquid Diet Start SunJun 07 [id number] Acetaminophen (Ofirmev) 1,000 mg in 100 mls @ 200 mls/hr IV Q6H MARY Stop: 06/07/21 17:59 Last Admin: 06/07/21 12:13 Dose: 200 mls/hr Documented by: Infusion: 06/07/21 06:35 Dose: 0 mls/hr Documented by: Admin: 06/07/21 06:02 Dose: 200 mls/hr Documented by: Infusion: 06/07/21 00:35 Dose: 0 mls/hr Documented by: Admin: 06/06/21 23:55 Dose: 200 mls/hr Documented by: Infusion: 06/06/21 20:15 Dose: 0 mls/hr Documented by: Admin: 06/06/21 19:26 Dose: 200 mls/hr Documented by: TAMMIE Metoclopramide HCl (Metoclopramide 10 Mg/2 Ml Vial) 10 mg IV Q6 MARY Last Admin: 06/07/21 12:12 Dose: 10 mg Documented by: Admin: 06/07/21 06:01 Dose: 10 mg Documented by: Admin: 06/06/21 23:54 Dose: 10 mg Documented by: Admin: 06/06/21 17:43 Dose: 10 mg Documented by: Admin: 06/06/21 12:07 Dose: 10 mg Documented by: Admin: 06/06/21 05:51 Dose: 10 mg Documented by: Admin: 06/05/21 23:51 Dose: 10 mg Documented by: KATELYN Shift Summary 06/07/21 02:40 Shift Summary by Dulce Mooney Primary Diagnosis: Partial SBO Registration Status: Day of Hospitalization: 06/05 Date of Surgery (if applicable): Pertinent Medical Dx/Issue(s): PTSD, prostate CA, colon CA with colostomy, PE - warfarin Interventions (wounds, diuresis, etc): bowel rest, IVF, ofirmev Vital Signs with Trends: VS on RA Neuro/Mental Status: A/Ox4, anxious at times Meds (abo, pain, BP, etc): no prns given, gets scheduled ofirmev Lines/Tubes: IVF running at 125cc/hr via pump of D5NS O2, liter flow/saturations: RA no home oxygen needs Lab/Rad results: Abd/pelvic CTA - Partial small bowel obstruction of the distal ileum in the right lower quadrant due to adhesions or stricture. No evidence of third spacing or perforation. Cardiac Rhythm (if applicable), alarms, trends: Date of last BM: colostomy pt instills 1000cc of water each am per stoma to help bowel movements. Elimination (remove Brice within 24h if appropriate): Voiding per urinal without difficulty Recommendations/questions for MD: home meds Expected date of discharge: TBD Discharge Plan (needs, disposition, etc): TBD Pt is [employer] and uses meditation and prayer for his prostate CA treatment. States he prefers Orthodoxy medicine over western medicine. Uses medical marijuana and benzos for PTSD anxiety. Patient was agitated at times during the night mainly wanting to be left alone to sleep. Initialized on 06/07/21 02:40 - END OF NOTE
== END 2021-06-07 15:05 | disposition home or self-care (01) | DRG 390 ==
LOC: ED 16:45 → MEDSUR 22:20
PROVIDERS: ADMIT Family Medicine Adult Medicine; ATTEND Family Medicine Adult Medicine

== ENCOUNTER 2024-03-18 18:00 | Inpatient (IN) ==
[2024-03-18] MEDS ORDERED: IOPAMIDOL 100 ML BOTTLE IV ONE (18:01)
[2024-03-18] MEDS: 0.9 % SODIUM CHLORIDE 1,000 ML IV ONE (18:29)
[2024-03-18] MEDS: HYDROmorphone 1 MG/ML SYRINGE IV ONE (18:32)
[2024-03-18] MEDS: ONDANSETRON 4 MG/2 ML VIAL IV ONE (18:32)
[2024-03-18 18:59] LABS: Basophils # (Auto) 0.02 K/mcL (0.00-0.30); Basophils % (Auto) 0.2 % (0.0-2.0); Eosinophils # (Auto) 0.02 K/mcL (0.00-0.70); Eosinophils % (Auto) 0.2 % (0.0-7.0); Hematocrit 32.2 % (40.1-51.0); Hemoglobin 10.5 g/dL (13.7-17.5); Lymphocytes % (Auto) 9.2 % (15.5-49.0); Mean Cell Volume 103.5 fL (80.0-100.0); Mean Corpuscular HGB Conc 32.6 g/dL (31.0-36.0); Mean Platelet Volume 9.7 fL (8.8-12.5); Monocytes # (Auto) 1.67 K/mcL (0.10-0.90); Monocytes % (Auto) 12.8 % (1.0-12.0); Neutrophils % (Auto) 77.1 % (38.0-78.0); Platelet Count 183 K/mcL (140-440); RBC 3.11 M/mcL (4.63-6.08); Red Cell Distribution Width 12.7 % (11.5-14.5)
[2024-03-18 19:13] LABS: ALT/SGPT 77 U/L (<40); AST/SGOT 84 U/L (<40); Albumin 3.4 gm/dL (3.2-5.2); Albumin/Globulin Ratio 1.2 (1.0-2.3); Alkaline Phosphatase 149 U/L (39-117); Bilirubin,Total 0.6 mg/dL (0.1-1.0); Blood Urea Nitrogen 27 mg/dL (8-23); Calcium 9.4 mg/dL (8.6-10.4); Carbon Dioxide 26 mmol/L (22-30); Chloride 98 mmol/L (96-108); Globulin 2.9 gm/dL (2.2-3.7); Glomerular Filtration Rate 62; Glucose 126 mg/dL (70-105); Potassium 3.8 mmol/L (3.3-5.1); Sodium 135 mmol/L (133-145)
[2024-03-18] MEDS ORDERED: LORazepam 2 MG/ML VIAL IV PRN (20:55)
[2024-03-18] MEDS ORDERED: ONDANSETRON 4 MG/2 ML VIAL IV PRN (20:55)
[2024-03-18] MEDS: HYDROmorphone 1 MG/ML SYRINGE IV PRN (21:27)
[2024-03-18] MEDS: ACETAMINOPHEN 1,000 MG/100 ML BAG IV SCH (22:07)
[2024-03-18] MEDS: 0.9 % SODIUM CHLORIDE 1,000 ML IV SCH (22:38)
[2024-03-19] MEDS: METOCLOPRAMIDE 10 MG/2 ML VIAL IV SCH (00:39)
[2024-03-19] MEDS: METHYLNALTREXONE BROMIDE 12 MG/0.6 ML SYRINGE SQ SCH (04:01)
[2024-03-19 06:45] LABS: ALT/SGPT 73 U/L (<40); AST/SGOT 80 U/L (<40); Albumin 3.4 gm/dL (3.2-5.2); Albumin/Globulin Ratio 1.2 (1.0-2.3); Alkaline Phosphatase 148 U/L (39-117); Bilirubin,Direct 0.3 mg/dL (<0.3); Bilirubin,Total 0.5 mg/dL (0.1-1.0); Blood Urea Nitrogen 25 mg/dL (8-23); Calcium 9.2 mg/dL (8.6-10.4); Carbon Dioxide 25 mmol/L (22-30); Chloride 99 mmol/L (96-108); Globulin 2.9 gm/dL (2.2-3.7); Glomerular Filtration Rate 56; Glucose 103 mg/dL (70-105); Lactate Dehydrogenase 381 U/L (135-225); Phosphorous 4.2 mg/dL (2.5-4.5); Potassium 4.1 mmol/L (3.3-5.1); Sodium 138 mmol/L (133-145); Triglycerides 116 mg/dL (<150); Uric Acid 5.9 mg/dL (2.5-8.0)
[2024-03-19] MEDS: PANTOPRAZOLE 40 MG VIAL IV SCH (16:17)
[2024-03-20 06:02] LABS: Basophils # (Auto) 0.03 K/mcL (0.00-0.30); Basophils % (Auto) 0.3 % (0.0-2.0); Eosinophils # (Auto) 0.08 K/mcL (0.00-0.70); Eosinophils % (Auto) 0.8 % (0.0-7.0); Hematocrit 31.7 % (40.1-51.0); Hemoglobin 10.3 g/dL (13.7-17.5); Lymphocytes # (Auto) 0.98 K/mcL (1.50-4.80); Lymphocytes % (Auto) 9.4 % (15.5-49.0); Mean Cell Volume 104.6 fL (80.0-100.0); Mean Corpuscular HGB Conc 32.5 g/dL (31.0-36.0); Mean Platelet Volume 10.3 fL (8.8-12.5); Monocytes # (Auto) 1.25 K/mcL (0.10-0.90); Neutrophils % (Auto) 77.2 % (38.0-78.0); Platelet Count 201 K/mcL (140-440); RBC 3.03 M/mcL (4.63-6.08); Red Cell Distribution Width 12.7 % (11.5-14.5); WBC 10.4 K/mcL (4.5-11.0)
[2024-03-20 06:44] LABS: ALT/SGPT 58 U/L (<40); AST/SGOT 66 U/L (<40); Albumin/Globulin Ratio 1.2 (1.0-2.3); Alkaline Phosphatase 133 U/L (39-117); Bilirubin,Direct 0.3 mg/dL (<0.3); Bilirubin,Total 0.5 mg/dL (0.1-1.0); Blood Urea Nitrogen 23 mg/dL (8-23); Calcium 8.7 mg/dL (8.6-10.4); Carbon Dioxide 23 mmol/L (22-30); Chloride 104 mmol/L (96-108); Globulin 2.5 gm/dL (2.2-3.7); Glomerular Filtration Rate 69; Glucose 76 mg/dL (70-105); Lactate Dehydrogenase 340 U/L (135-225); Phosphorous 3.4 mg/dL (2.5-4.5); Potassium 4.1 mmol/L (3.3-5.1); Sodium 138 mmol/L (133-145); Triglycerides 123 mg/dL (<150); Uric Acid 5.3 mg/dL (2.5-8.0)
[2024-03-20 21:15] LABS: Appearance,Urine CLEAR (Clear); Bilirubin,Urine Negative (Negative); Color,Urine YELLOW; Glucose,Urine (UA) Negative (Negative); Ketones,Urine 5 mg/dL (Negative); Leukocyte Esterase,Urine Negative /uL (Negative); Mucus,Urine FEW /hpf; Nitrate,Urine Negative (Negative); Protein,Urine 30 mg/dL (Negative); Specific Gravity,Urine 1.032 (1.000-1.035); Urine Blood 0.03 mg/dL (Negative); Urine RBC 28 /hpf (0-3); Urine Squamous Epithelial Cell 0 /hpf (0-4); Urine Transitional Epi Cells 1 /hpf (0-2); Urine WBC 13 /hpf (0-4); Urobilinogen,Urine Negative
[2024-03-20] MEDS: oxyCODONE IR 5 MG TABLET PO PRN (21:51)
[2024-03-20] MEDS: oxyCODONE IR 5 MG TABLET PO ONE (21:54)
[2024-03-21] MEDS: oxyCODONE IR 5 MG TABLET PO ONE (03:39)
[2024-03-21 06:15] LABS: Basophils # (Auto) 0.05 K/mcL (0.00-0.30); Basophils % (Auto) 0.6 % (0.0-2.0); Eosinophils # (Auto) 0.15 K/mcL (0.00-0.70); Eosinophils % (Auto) 1.7 % (0.0-7.0); Hematocrit 32.2 % (40.1-51.0); Hemoglobin 10.2 g/dL (13.7-17.5); Lymphocytes # (Auto) 1.37 K/mcL (1.50-4.80); Lymphocytes % (Auto) 15.8 % (15.5-49.0); Mean Cell Volume 105.6 fL (80.0-100.0); Mean Corpuscular HGB Conc 31.7 g/dL (31.0-36.0); Mean Platelet Volume 10.4 fL (8.8-12.5); Monocytes # (Auto) 1.23 K/mcL (0.10-0.90); Monocytes % (Auto) 14.2 % (1.0-12.0); Neutrophils % (Auto) 67.2 % (38.0-78.0); Platelet Count 211 K/mcL (140-440); RBC 3.05 M/mcL (4.63-6.08); Red Cell Distribution Width 12.9 % (11.5-14.5); WBC 8.7 K/mcL (4.5-11.0)
[2024-03-21 07:15] VITALS: TEMP 97.8
[2024-03-21 12:00] VITALS: O2SAT 91
== END 2024-03-21 14:54 | disposition home or self-care (01) | DRG 389 ==
LOC: ED 18:00 → MEDSUR 23:20
PROVIDERS: ADMIT Family Medicine Adult Medicine; ATTEND Family Medicine Adult Medicine